=== PATIENT | female | born 1945 ===

== ENCOUNTER 2020-04-15 12:11 | Outpatient (REF) | payer MEDICARE, OTHER, SELFPAY ==
[2020-04-15 14:03] LABS: Alanine Aminotransferase 20 U/L (0-31); Alkaline Phosphatase 67 U/L (39-117); Anion Gap 17 (12-20); Aspartate Amino Transferase 17 U/L (5-31); Bilirubin Total 0.7 mg/dL (0.0-1.0); Blood Urea Nitrogen 18 mg/dL (9-16); Calcium 9.9 mg/dL (8.4-10.2); Carbon Dioxide 22 mmol/L (22-29); Chloride 105 mmol/L (96-108); Estimated Glomerular Filt Rate > 60; Glucose Random 142 mg/dL (60-115); Potassium 4.3 mmol/l (3.3-5.1); Sodium 140 mmol/L (135-145); Total Protein 7.4 g/dL (6.5-8.0)
[2020-04-15 14:15] LABS: T4 Thyroxine 6.7 ug/dL (4.5-12.0); Vitamin D 25-OH Total 27.5 ng/mL (>30)
[2020-04-15 15:44] LABS: Folate 7.8 ng/mL (> or = 4.0); Vitamin B12 676 pg/mL (200-900)
[2020-04-19 15:13] LABS: Thyrotropin Receptor Antibody <1.00 IU/L (<=2.00)
== END 2020-04-15 12:12 | disposition home or self-care (01) ==
LOC: HO.LAB 12:11
PROVIDERS: PCP Internal Medicine; Visit Provider Psychiatry & Neurology Neurology
DX: G31.84 Mild cognitive impairment of uncertain or unknown etiology (principal)
CPT/HCPCS: 36415; 80053; 82306; 82607; 82746; 83520; 84436

== ENCOUNTER 2020-04-19 14:12 | Outpatient (REF) | payer MEDICARE, MEDICAID, SELFPAY ==
--- NOTE | 2020-04-19 14:16 | CT_ITS ---
EXAMINATION: CT HEAD WITHOUT CONTRAST CLINICAL INFORMATION: Mild cognitive impairment. COMPARISON: Brain MRI dated 08/18/2018. TECHNIQUE: Contiguous axial imaging was performed from the skull base to vertex without intravenous administration of contrast. This CT examination was performed using dose optimization techniques as appropriate, variously including the following: *Automated exposure control *Adjustment of mA and/or kV according to patient size (this includes techniques or standardized protocols for targeted exams where dose is matched to indication/reason for exam; i.e. extremities or head) *Use of iterative reconstruction technique DLP: 670 mGy-cm FINDINGS: There is no evidence of acute intracranial hemorrhage or territorial infarction. No abnormal mass effect or midline shift is seen. Crowe to white matter differentiation is well preserved. No extra-axial fluid collections are identified. The ventricles are normal in size. Mild chronic white matter microangiopathic changes noted with mild generalized parenchymal volume loss. The osseous structures and soft tissues are normal. The mastoid air cells and visualized portions of the paranasal sinuses are well aerated. CT/CT head/brain wo con IMPRESSION: No acute intracranial pathology. Stable mild chronic white matter microangiopathy and mild generalized parenchymal volume loss.
== END 2020-04-19 14:13 | disposition home or self-care (01) ==
LOC: HO.CT 14:12
PROVIDERS: PCP Internal Medicine; Visit Provider Psychiatry & Neurology Neurology
DX: G31.84 Mild cognitive impairment of uncertain or unknown etiology (principal)
CPT/HCPCS: 70450

== ENCOUNTER 2020-05-13 10:04 | Outpatient (REF) | payer MEDICARE, SELFPAY ==
[2020-05-13 11:07] LABS: MANUAL DIFF FLAG NO
[2020-05-13 11:12] LABS: Basophils Percent Auto 0.4 % (0-2); Eosinophils Absolute Auto 0.1 X10*3/uL (0.0-0.4); Eosinophils Percent Auto 2.6 % (0-4); Hematocrit 38.8 % (37-47); Hemoglobin 12.5 g/dl (12.0-16.0); Imm Gran Abs Auto 0.01 X10*3/uL (0.00-0.03); Imm Gran Pct Auto 0.2 % (0.0-0.4); Lymphocytes Absolute Auto 1.4 X10*3/uL (1.2-4.9); Lymphocytes Percent Auto 25.7 % (20-40); Mean Corpuscular HGB Conc 32.2 g/dl (31.0-35.0); Mean Corpuscular Hemoglobin 29.6 pg (27.0-33.0); Mean Corpuscular Volume 91.7 fL (80-98); Mean Platelet Volume 9.9 fL (9.4-12.3); Monocytes Absolute Auto 0.5 X10*3/uL (0.1-1.2); Monocytes Percent Auto 8.7 % (2-11); Neutrophils Absolute Auto 3.3 X10*3/uL (2.0-8.3); Neutrophils Percent Auto 62.4 % (45-73); Platelet Count 262 X10*3/uL (160-400); Red Blood Count 4.23 X10*6/uL (4.20-5.50); Red Cell Distribution Width 12.6 % (11.0-16.0); White Blood Count 5.3 X10*3/uL (4.8-10.8)
[2020-05-13 11:25] LABS: Alanine Aminotransferase 21 U/L (0-31); Albumin Level 4.7 g/dL (3.5-5.0); Alkaline Phosphatase 63 U/L (39-117); Anion Gap 12 (12-20); Aspartate Amino Transferase 17 U/L (5-31); Bilirubin Total 0.5 mg/dL (0.0-1.0); Blood Urea Nitrogen 13 mg/dL (9-16); Calcium 9.6 mg/dL (8.4-10.2); Carbon Dioxide 28 mmol/L (22-29); Chloride 105 mmol/L (96-108); Cholesterol 150 mg/dL; Estimated Glomerular Filt Rate > 60; Glucose Fasting 150 mg/dL (60-99); HDL Cholesterol 48 mg/dL; LDL Cholesterol Calculated 46 mg/dl; Potassium 4.1 mmol/l (3.3-5.1); Sodium 141 mmol/L (135-145); Total Protein 7.1 g/dL (6.5-8.0); Triglycerides 280 mg/dL
[2020-05-13 11:49] LABS: Glucose Urine UA NEG (NEG); Leukocyte Esterase Urine 1+ (NEG); Nitrite Urine NEG (NEG); PH 6.5 (5.0-8.0); Specific Gravity - Urine 1.015 (1.005-1.025); Urine Blood NEG (NEG); Urine Ketones NEG (NEG); Urine Protein NEG (NEG-TRACE)
[2020-05-13 11:49] LABS: Free T4 (Free Thyroxine) 1.13 ng/dL (0.71-1.85); Thyroid Stimulating Hormone 1.73 uIU/mL (0.32-4.0)
[2020-05-13 11:59] LABS: Appearance Urine CLEAR; Color Urine YELLOW
[2020-05-13 12:04] LABS: Folate 7.3 ng/mL (> or = 4.0); Vitamin B12 619 pg/mL (200-900)
[2020-05-13 12:06] LABS: Creatinine Urine 76.91 mg/dL; Microalbum/Creatinine Ratio Ur 16.9 ug/mg cr
[2020-05-13 13:03] LABS: RBC Urine 0 /HPF (0); Squamous Epithelial Cell Urine TRACE /LPF; WBC Urine 0-2 /HPF (0-4)
== END 2020-05-13 10:05 | disposition home or self-care (01) ==
LOC: HO.LAB 10:04
PROVIDERS: PCP Internal Medicine; Visit Provider Internal Medicine
DX: E11.9 Type 2 diabetes mellitus without complications (principal); E78.2 Mixed hyperlipidemia; I10 Essential (primary) hypertension; E03.9 Hypothyroidism, unspecified; E66.3 Overweight; R41.3 Other amnesia; K21.9 Gastro-esophageal reflux disease without esophagitis
CPT/HCPCS: 36415; 80053; 80061; 81001; 82043; 82607; 82746; 84439; 84443; 85025; 87086

== ENCOUNTER 2022-04-23 12:53 | Outpatient (REF) | payer SELFPAY ==
--- NOTE | 2022-04-24 11:33 | MHC.AU.HA1 ---
Hearing Aid Evaluation Date of Visit: 04/23/22 Historical Information: Description of Hearing: Right: Mild to profound sensorineural hearing loss with 84% word discrimination. Left: Severe rising to moderately-severe and sloping to profound mixed hearing loss with no measurable word discrimination. Summary: Patient was seen at Dr. Encarnacion's office on 01/12/2022 for audiological evaluation. Based on the results, a traditional hearing aid for the left ear would not be recommended, since there is no measurable word discrimination. Patient and her daughter expressed an interest in keeping the trujillo as low as possible. They are opting out of the service plan for now. She is interested in the BTE style. She has a quiet lifestyle where most of her conversations are one-on-one. Hearing Aid Prescription: Based on the individual?s shared listening needs, communication environments, dexterity, desire for connectivity, and personal preferences, the following prescription for amplification has been made: Right ear: Make, Model, Color: Oticon Xceed 3 SP, Black Battery Size: 13 Type of Earmold/Dome/CShell/SlimTip: Microsonic Skeleton-style M2000 Clear Action Taken/Action Needed: Earmold Impressions Taken Hearing Instrument Fitting to be scheduled when materials arrive Primary Diagnosis: H90.3 Bilateral Sensorineural Hearing Loss Signature: Provider: Yamini Valentine, MARY-A
== END 2022-04-23 12:54 | disposition home or self-care (01) ==
LOC: HO.HAP 12:53
PROVIDERS: Visit Provider Otolaryngology
DX: Z46.1 Encounter for fitting and adjustment of hearing aid (principal); H90.3 Sensorineural hearing loss, bilateral
CPT/HCPCS: 92590

== ENCOUNTER 2022-05-14 12:07 | Outpatient (REF) | payer SELFPAY | END 2022-05-14 12:08 | disposition home or self-care (01) | LOC: HO.HAP 12:07 | PROVIDERS: Visit Provider Internal Medicine | DX: Z13.89 Encounter for screening for other disorder (principal) ==

== ENCOUNTER 2022-06-04 12:38 | Outpatient (REF) | payer SELFPAY ==
--- NOTE | 2022-06-04 15:23 | MHC.AU.HA2 ---
Hearing Instrument Fitting- Adult Date of Visit: 06/04/22 Hearing Instruments Dispensed: Right Ear: Make, Model, Color, Serial Number: Oticon Xceed 3 SP, Silver Reynolds Serial # [id number] [employer] Repair Warranty: 05/24/2025 [employer] Loss and Damage Warranty: 05/24/2025 [facility] Service Plan: Opted out of service plan Battery Size: 13 Earmold/Dome/CShell/SlimTip: Microsonic Skeleton-style M2000 Clear Summary of Fitting: The hearing aid returned from repair. Patient was re-instructed in care and use of the hearing aid. Patient had an easier time changing the battery by using the magnetic tool. She felt the sound was slightly echoing. Lowered overall gain by 2 steps. Patient was pleased with the adjustment. Recommendations: A hearing instrument follow-up was scheduled. Paid $1774 Diagnosis Code(s): Primary Diagnosis: H90.3 Bilateral Sensorineural Hearing Loss Signature: Provider: Yamini Valentine, CCC-A
== END 2022-06-04 12:39 | disposition home or self-care (01) ==
LOC: HO.HAP 12:38
PROVIDERS: Visit Provider Internal Medicine
DX: Z46.1 Encounter for fitting and adjustment of hearing aid (principal); H90.3 Sensorineural hearing loss, bilateral
CPT/HCPCS: V5257; V5264

== ENCOUNTER 2022-07-20 11:45 | Outpatient (REF) | payer MEDICARE, MEDICAID, SELFPAY ==
[2022-07-20 12:06] LABS: MANUAL DIFF FLAG NO
[2022-07-20 12:09] LABS: Basophils Percent Auto 0.8 % (0-2); Eosinophils Absolute Auto 0.2 X10*3/uL (0.0-0.4); Eosinophils Percent Auto 4.2 % (0-4); Hematocrit 36.5 % (37.0-47.0); Hemoglobin 12.1 g/dl (12.0-16.0); Imm Gran Abs Auto 0.01 X10*3/uL (0.00-0.03); Imm Gran Pct Auto 0.2 % (0.0-0.4); Lymphocytes Absolute Auto 1.5 X10*3/uL (1.2-4.9); Lymphocytes Percent Auto 29.7 % (20-40); Mean Corpuscular HGB Conc 33.2 g/dl (31.0-35.0); Mean Corpuscular Hemoglobin 30.3 pg (27.0-33.0); Mean Corpuscular Volume 91.5 fL (80.0-98.0); Mean Platelet Volume 9.4 fL (9.4-12.3); Monocytes Absolute Auto 0.4 X10*3/uL (0.1-1.2); Monocytes Percent Auto 8.3 % (2-11); Neutrophils Absolute Auto 2.8 x10*3/uL (2.0-8.3); Neutrophils Percent Auto 56.8 % (45-73); Platelet Count 263 X10*3/uL (160-400); Red Blood Count 3.99 X10*6/uL (4.20-5.50); Red Cell Distribution Width 12.8 % (11.0-16.0)
[2022-07-20 13:33] LABS: Alanine Aminotransferase 9 U/L (0-31); Albumin Level 4.5 g/dL (3.5-5.0); Alkaline Phosphatase 60 U/L (39-117); Anion Gap 13 (12-20); Aspartate Amino Transferase 14 U/L (5-31); Bilirubin Total 0.5 mg/dL (0.0-1.0); Blood Urea Nitrogen 13 mg/dL (9-16); Calcium 9.2 mg/dL (8.4-10.2); Carbon Dioxide 25 mmol/L (22-29); Chloride 108 mmol/L (96-108); Cholesterol 174 mg/dL; Estimated Glomerular Filt Rate > 60; Glucose Fasting 126 mg/dL (60-99); HDL Cholesterol 44 mg/dL; LDL Cholesterol Calculated 85 mg/dl; Potassium 4.6 mmol/L (3.3-5.1); Sodium 141 mmol/L (135-145); Total Protein 6.7 g/dL (6.5-8.0); Triglycerides 227 mg/dL
[2022-07-20 14:07] LABS: Appearance Urine Clear; Color Urine Yellow; Glucose Urine UA Negative (Negative); Leukocyte Esterase Urine Small (1+) (Negative); Nitrite Urine Negative (Negative); UMIC TRIGGER UACC YES; Urine Blood Negative (Negative); Urine Ketones Negative (Negative); Urine Protein Negative (Neg-Trace)
[2022-07-20 14:20] LABS: Bacteria Urine None Seen (None Seen); Hyaline Casts Urine 0-2 /LPF (0-2); RBC Urine 0-2 /HPF (0-2); UACC Culture Trigger YES; WBC Urine 0-5 /HPF (0-5)
[2022-07-20 14:31] LABS: Estimated Average Glucose 134 mg/dL; Hemoglobin A1c % 6.3 %
[2022-07-20 14:40] LABS: Folate 4.5 ng/mL (> or = 4.0); Free T4 (Free Thyroxine) 1.21 ng/dL (0.71-1.85); Vitamin B12 516 pg/mL (200-900); Vitamin D 25-OH Total 22.2 ng/mL (>30)
== END 2022-07-20 11:46 | disposition home or self-care (01) ==
LOC: HO.LAB 11:45
PROVIDERS: PCP Internal Medicine; Visit Provider Internal Medicine
DX: E78.00 Pure hypercholesterolemia, unspecified (principal); E03.9 Hypothyroidism, unspecified; I10 Essential (primary) hypertension; R41.89 Other symptoms and signs involving cognitive functions and awareness; R73.01 Impaired fasting glucose; E55.9 Vitamin D deficiency, unspecified; R82.90 Unspecified abnormal findings in urine
CPT/HCPCS: 36415; 80053; 80061; 81001; 81003; 82306; 82607; 82746; 83036; 84439; 84443; 85025; 87086

== ENCOUNTER 2023-02-01 14:20 | Outpatient (AMB) | payer MEDICARE, SELFPAY ==
[2023-02-01 14:22] VITALS: BP 118/82; PULSE 85; O2SAT 98; BMI 21.2
--- NOTE | 2023-02-01 14:22 | A.OFFPC_ITS ---
Vital Signs 02/01/23 14:22 Height 5 ft 1 in Weight 112 lb 2 oz BMI 21.2 BP 118/82 Blood Pressure Location Lt brachial Position Sitting Pulse 85 Pulse Source Pulse Oximeter Pulse Oximetry (%) 98 Oxygen Delivery Method Room Air Intake Visit Reasons: DM, hyperlipidemia, hypothyroidism Cheese Weigher Required: No Accompanied by: Self / Same As Patient Allergies tramadol Allergy (Severe, Verified 02/01/23 15:02) Hives lisinopril Adverse Reaction (Unknown, Verified 02/01/23 15:02) cough Medication List - Last Reconciled 02/01/23 by Damián Yuan MD albuterol sulfate 90 mcg/actuation 2 puffs inhalation Q6H PRN amlodipine 5 mg PO DAILY 90 days atorvastatin 20 mg PO DAILY cholecalciferol (vitamin D3) 50 mcg PO DAILY 90 days donepezil 10 mg PO DAILY 90 days fenofibrate 54 mg PO DAILY ibuprofen 600 mg PO TID PRN levothyroxine 50 mcg PO QAM memantine 10 mg PO QPM 30 days omeprazole 20 mg PO DAILY Tobacco use date assessed: 02/01/23 Fall risk assessment: 2 + Falls in past year Last assessed Fall Risk: 02/01/23 Dental Screening Dental Screen Date: 02/01/23 Did you have a dental visit in the last 12 months?: No Did you have a dental problem in the last 6 months where you did not have access to dental care?: No Was dental information given to patient?: No HPI DM, hyperlipidemia, hypothyroidism HPI Details Patient comes in today for her follow up visit Daughter states patient has not been eating much for a few weeks now - patient reportedly often states that she is not hungry States that patient then complains that she is weak all the time and often feels cold She has lost about 10 pounds since her last visit She denies any headaches or dizziness Denies any chest pains, no SOB No nausea/vomiting, no abdominal pain No change in bowel habits noted Was not able to get her follow up labs done prior to her appt today - daughter states that she will try to bring her mother to the lab by this weekend to get them done FORMERLY [facility], [facility] Medical History Blurred vision, bilateral Vitamin D deficiency Overweight (BMI 25.0-29.9) Memory impairment Osteoarthritis Bilateral hearing loss Asthma GERD without esophagitis Acquired hypothyroidism Benign essential hypertension Mixed hyperlipidemia Type 2 diabetes mellitus without complication, without long-term current use of insulin Surgical History History of cataract surgery History of D&C History of tubal ligation Family History Father Lung cancer Mother Hypertension Daughter Mental health disorder Social History Housing: Apartment Alcohol intake: never Patient Tobacco Use Status: Never used Tobacco e-Cigarette/Vaping Use: Never Used Second Hand Smoke Exposure: No service: No Current occupational status: retired Cognitive needs: No Hearing needs: Yes (has upcoming appt for audiology) Vision needs: Yes Questionnaire PHQ-9 Over the last 2 weeks, how often have you been bothered by any of the following problems? 1. Little interest or pleasure in doing things: not at all 2. Feeling down, depressed, or hopeless: not at all 3. Trouble falling or staying asleep, or sleeping too much: not at all 4. Feeling tired or having little energy: not at all 5. Poor appetite or overeating: not at all 6. Feeling bad about yourself - or that you are a failure or have let yourself or your family down: not at all 7. Trouble concentrating on things, such as reading the newspaper or watching television: not at all 8. Moving or speaking so slowly that other people could have noticed. Or the opposite - being so fidgety or restless that you have been moving around a lot more than usual: not at all 9. Thoughts that you would be better off or of hurting yourself in some way: not at all Total score: 0 Depression Screening Interpretation: Negative 79924 - PHQ-9 Billing: Yes Source: Developed by Drs. Joni James, Kristine Campa, Alex Okeefe and colleagues, with an educational suresh from [employer]. Thrive Questionnaire Date Thrive assessed: 02/01/23 I am a: Patient What is your living situation today?: I have a steady place to live Within the past 12 months, did the food you bought not last and you didn't have the money to get more?: Never true Within the past 12 months, did you worry whether your food would run out before you got money to buy more?: Never true Do you have trouble paying for medicines?: No Do you have trouble getting transportation to medical appointments?: No Do you have trouble paying your heating and electricity bill?: No Do you have trouble taking care of your child, family member or friend?: No Do you have trouble with day-to-day activities such as bathing, preparing meals, shopping, managing finances, etc.?: No Are you currently unemployed and looking for a job?: No Are you interested in more education?: No Please select the resources that you would like help with: None Currently or been in a relationship where the following occur: no concerns reported AUDIT C Alcohol Use Questionnaire (AUDIT-C) 1. How often do you have a drink containing alcohol?: Never 3. How often do you have six or more drinks on one occasion?: Never Total Score: 0 Score Reviewed/Action Taken: Yes MONICA-7 AMB Questionnaire MONICA-7 Date MONICA - 7 assessed: 02/01/23 Feeling nervous, anxious, or on edge: 0 = Not at all Not being able to stop or control worryin = Not at all Worrying too much about different things: 0 = Not at all Trouble relaxin = Not at all Being so restless that it is hard to sit still: 0 = Not at all Becoming easily annoyed or irritable: 0 = Not at all Feeling afraid as if something awful might happen: 0 = Not at all Total MONICA-7 score (0-4 normal; 5-9 mild; 10-14 moderate; 15-21 severe): 0 Source: Developed by Drs. Joni James, Kristine Campa, Alex Okeefe and colleagues, with an educational suresh from [employer]. MONICA-7 Assessment Billing MONICA-7 Assessment Tool: MONICA-7 Assessment 92342 Review of Systems Const Denies chills, Denies difficulty sleeping (sleeps on her own schedule), Denies fatigue, Denies fever(s), Denies headache(s), Reports poor appetite, Reports weakness and Reports weight loss ENT Denies dysphagia, Denies dizziness, Denies otalgia, Denies headache(s), Reports hearing loss (bilaterally; worse in the left ear - now has hearing aid in right ear), Denies odynophagia and Denies sore throat Card Denies chest pain, Denies palpitations and Denies dyspnea Resp Denies cough, Denies dyspnea and Denies wheezing GI Denies abdominal pain, Denies constipation, Denies dysphagia, Denies heartburn, Denies diarrhea, Denies nausea, Denies odynophagia and Denies vomiting Denies difficulty voiding, Denies nocturia and Denies dysuria Musc Denies arthralgias and Denies muscle weakness Skin/Breast Details: (+) long and disfigured toenails on her big toes bilaterally Denies rash Neuro Denies dizziness, Denies headache(s), Reports memory loss and Reports weakness Psych Reports memory loss Endo Denies fatigue and Denies palpitations Aller/Immun Denies wheezing Physical exam (Primary Care) Vital Signs: Last Vital Signs Pulse 85 02/01/23 14:22 BP 118/82 02/01/23 14:22 Pulse Ox 98 02/01/23 14:22 Oxygen Delivery Method Room Air 02/01/23 14:22 BMI result Body Mass Index 21.2 Tobacco/Smoking Status: Tobacco use Status Tobacco use date assessed 02/01/23 02/01/23 14:30 Patient Tobacco Use Status Never used Tobacco 02/01/23 14:30 e-Cigarette/Vaping Use Never Used 02/01/23 14:30 PHQ-9: PHQ-9 Score PHQ-9: Total score 0 02/01/23 15:06 Depression Screening Interpretation: Negative Thrive Assessment: Date of Thrive Assessment Date Thrive assessed 02/01/23 02/01/23 14:30 Currently or been in a relationship where the following occur: no concerns reported Const General: no acute distress and alert HENMT Ears: TM's normal bilaterally and EAC's normal Throat: Yes posterior oropharynx normal and Yes tonsils normal (no TP conges tion) Neck Neck: Yes no lymphadenopathy and Yes supple Resp Auscultation: clear to auscultation bilaterally, no rales and no wheezes Cardio Rate: regular rate Rhythm: regular rhythm Heart sounds: no murmurs GI Palpation (GI): Soft to palpation and nontender Auscultation: normal bowel sounds Skin General skin exam: no rashes or lesions noted Rashes: no rashes Extrem General: Yes no clubbing, cyanosis or edema Results AMB Hemoglobin A1c AMB Hemoglobin A1c 5.8 % Last Edit by Keith Gomez on 02/01/23 14:49 Results Reviewed Results Reviewed: Laboratory Last Values Hgb A1c (Clinic) 5.8 % (4.0-6.0) 02/01/23 14:48 Assessment and Plan Assessment & Plan (1) Type 2 diabetes mellitus without complication, without long-term current use of insulin: Code(s): E11.9 - Type 2 diabetes mellitus without complications Plan: In-office HgbA1c done today is at 5.8% (HgbA1c was at 6.3% a few months ago) - goal is at least <7.0% Reinforced diabetic diet Patient has so far not been started on or required any Rx for her diabetes yet and she has just been keeping it under control with diet modification/restriction alone (2) Mixed hyperlipidemia: Code(s): E78.2 - Mixed hyperlipidemia Plan: Did not get her follow up labs done yet - her daughter states that she will help her get them done by this weekend Reinforced low cholesterol diet Continue Atorvastatin 20 mg QD and Fenofibrate 54 mg QD Will recheck her labs and fasting lipids again in 3 months for follow-up (3) Benign essential hypertension: Code(s): I10 - Essential (primary) hypertension Plan: Reinforced low sodium diet - goal is systolic BP of at least 130 to 140 mm or less Continue Amlodipine 5 mg QD - Rx refilled (4) Asthma: Code(s): J45.909 - Unspecified asthma, uncomplicated Qualifiers: Asthma complication type: uncomplicated Asthma persistence: intermittent Asthma severity: mild Qualified Code(s): J45.20 - Mild intermittent asthma, uncomplicated Plan: Stable Continue Spiriva Respimat 2.5 mg 2 inhalations QD and Albuterol HFA 2 inhalations Q 6 hours PRN (5) Acquired hypothyroidism: Code(s): E03.9 - Hypothyroidism, unspecified Plan: Continue Levothyroxine 50 mcg QD Will recheck her TFTs in 3 months for follow up (6) GERD without esophagitis: Code(s): K21.9 - Gastro-esophageal reflux disease without esophagitis Plan: Dietary restrictions reinforced Continue Omeprazole 20 mg QD (7) Osteoarthritis: Code(s): M19.90 - Unspecified osteoarthritis, unspecified site Qualifiers: Osteoarthritis location: unspecified site Osteoarthritis type: primary Qualified Code(s): M19.91 - Primary osteoarthritis, unspecified site Plan: Continue Tramadol 50 mg Q 6 hours PRN for increased pain (8) Vitamin D deficiency: Code(s): E55.9 - Vitamin D deficiency, unspecified Plan: Continue Vitamin D3 2000 units QD Will recheck Vitamin D level in 3 months for follow up (9) Memory impairment: Code(s): R41.3 - Other amnesia Plan: Is most likely due to cognitive impairment associated with aging Follow up with neurology as scheduled (10) Bilateral hearing loss: Code(s): H91.93 - Unspecified hearing loss, bilateral Qualifiers: Hearing loss type: unspecified Qualified Code(s): H91.93 - Unspecified hearing loss, bilateral Plan: Hearing evaluation done a few months ago revealed bilateral hearing loss, worse in the left ear Currently has hearing aid only in the right ear; was advised that a hearing aid for the left ear would not be recommended, since there is no measurable word discrimination in the ear and also since they are interested in keeping costs down Follow up with ENT as scheduled for continuing management (sees Dr. Encarnacion) (11) Onycholysis of toenail: Comment: involving the big toes bilaterally Code(s): L60.1 - Onycholysis Plan: Patient was previously referred to podiatry for further evaluation and management but her daughter states that they have not yet been contacted for an appointment Will refer her again to podiatry (12) Weight loss: Code(s): R63.4 - Abnormal weight loss Plan: Patient is cautioned again that she has been gradually and consistently losing weight for the past several months; she has lost another 10 pounds since her last visit Have advised her that if she does not eat her meals regularly and routinely, her eating habits will slowly decline and this is most likely what is happening in her case Have discussed with patient and her daughter that patient is gradually declining cognition and her irregular sleeping habits are also likely playing a big role in her regular eating habits and weight loss Have advised patient to try small frequent feedings if she finds that she really can not eat much during her meal times and have advised her to try to weigh herself at least once a week and this should help her keep track of her weight Will go ahead and start her on some Cyproheptadine 4 mg BID to help stimulate her appetite somewhat Will have her recheck some labs in 3 months for follow-up/further evaluation Plan Follow up in 3 months Orders: Orders Lipid Panel 3 Months E78.00 - Pure hypercholesterolemia, unspecified Complete Blood Count Auto Diff 3 Months I10 - Essential (primary) hypertension Comprehensive [place]. Panel Fast 3 Months E78.00 - Pure hypercholesterolemia, unspecified AMB Hemoglobin A1c Today Z13.9 - Encounter for screening, unspecified Free T4 (Free Thyroxine) 3 Months E03.9 - Hypothyroidism, unspecified Vitamin D 25-OH Total 3 Months E55.9 - Vitamin D deficiency, unspecified UA CC w/rflx Micro + Cult 3 Months R30.0 - Dysuria Vitamin B12 and Folate 3 Months E53.8 - Deficiency of other specified B group vitamins Thyroid Stimulating Hormone 3 Months E03.9 - Hypothyroidism, unspecified Referrals Podiatry Referral B35.1 - Tinea unguium Medications: New cyproheptadine 4 mg PO BID 120 tabs 2RF 60 days Coding Level of Care Code Est Pt Level 4 (18248) Diagnoses Type 2 diabetes mellitus without complication, without long-term current use of insulin E11.9 Mixed hyperlipidemia E78.2 Benign essential hypertension I10 Mild intermittent asthma without complication J45.20 Asthma complication type: uncomplicated Asthma persistence: intermittent Asthma severity: mild Acquired hypothyroidism E03.9 GERD without esophagitis K21.9 Primary osteoarthritis, unspecified site M19.91 Osteoarthritis location: unspecified site Osteoarthritis type: primary Vitamin D deficiency E55.9 Memory impairment R41.3 Bilateral hearing loss, unspecified hearing loss type H91.93 Hearing loss type: unspecified Onycholysis of toenail L60.1 Weight loss R63.4 Additional Codes MONICA-7 Assessment Billing - MONICA-7 Assessment Tool: MONICA-7 Assessment [id number] ([id number])
== END 2023-02-01 15:14 | disposition home or self-care (01) ==
PROVIDERS: PCP Internal Medicine; Visit Provider Internal Medicine
DX: E11.9 Type 2 diabetes mellitus without complications (principal)
CPT/HCPCS: 83036; 99214

== ENCOUNTER 2023-02-08 11:15 | Outpatient (REF) | payer MEDICARE, MEDICAID, SELFPAY ==
[2023-02-08 11:43] LABS: MANUAL DIFF FLAG NO
[2023-02-08 12:03] LABS: Basophils Percent Auto 0.5 % (0-2); Eosinophils Absolute Auto 0.1 X10*3/uL (0.0-0.4); Eosinophils Percent Auto 2.5 % (0-4); Hematocrit 37.6 % (37.0-47.0); Imm Gran Abs Auto 0.01 X10*3/uL (0.00-0.03); Imm Gran Pct Auto 0.3 % (0.0-0.4); Lymphocytes Absolute Auto 1.3 X10*3/uL (1.2-4.9); Lymphocytes Percent Auto 34.2 % (20-40); Mean Corpuscular HGB Conc 31.9 g/dl (31.0-35.0); Mean Corpuscular Hemoglobin 29.7 pg (27.0-33.0); Mean Corpuscular Volume 93.1 fL (80.0-98.0); Mean Platelet Volume 9.6 fL (9.4-12.3); Monocytes Absolute Auto 0.4 X10*3/uL (0.1-1.2); Monocytes Percent Auto 10.9 % (2-11); Neutrophils Absolute Auto 1.9 x10*3/uL (2.0-8.3); Neutrophils Percent Auto 51.6 % (45-73); Platelet Count 242 X10*3/uL (160-400); Red Blood Count 4.04 X10*6/uL (4.20-5.50); Red Cell Distribution Width 14.7 % (11.0-16.0); White Blood Count 3.7 X10*3/uL (4.8-10.8)
[2023-02-08 12:20] LABS: Estimated Average Glucose 114 mg/dL; Hemoglobin A1c % 5.6 % (<6.0)
[2023-02-08 13:17] LABS: Alanine Aminotransferase 16 U/L (0-31); Albumin Level 4.2 g/dL (3.5-5.0); Alkaline Phosphatase 47 U/L (39-117); Anion Gap 15 (12-20); Aspartate Amino Transferase 16 U/L (5-31); Bilirubin Total 0.5 mg/dL (0.0-1.0); Blood Urea Nitrogen 9 mg/dL (9-16); Calcium 9.3 mg/dL (8.4-10.2); Carbon Dioxide 22 mmol/L (22-29); Chloride 110 mmol/L (96-108); Cholesterol 153 mg/dL (<200); Estimated Glomerular Filt Rate > 60; Glucose Fasting 98 mg/dL (60-99); HDL Cholesterol 42 mg/dL (>40); LDL Cholesterol Calculated 51 mg/dL (<100); Potassium 3.9 mmol/L (3.3-5.1); Sodium 143 mmol/L (135-145); Total Protein 6.6 g/dL (6.5-8.0); Triglycerides 304 mg/dL (<150)
[2023-02-08 13:36] LABS: Free T4 (Free Thyroxine) 0.98 ng/dL (0.71-1.85); Vitamin D 25-OH Total 44.6 ng/mL (>30)
[2023-02-08 14:06] LABS: Appearance Urine Clear; Color Urine Yellow; Glucose Urine UA Negative (Negative); Leukocyte Esterase Urine Large (3+) (Negative); Nitrite Urine Negative (Negative); PH 6.5 (5.0-9.0); Specific Gravity - Urine 1.015 (1.005-1.025); UMIC TRIGGER UACC YES; Urine Blood Negative (Negative); Urine Ketones Negative (Negative); Urine Protein Negative (Neg-Trace)
[2023-02-08 14:10] LABS: Bacteria Urine None Seen (None Seen); RBC Urine 0-2 /HPF (0-2); Squamous Epithelial Cell Urine 0-2 /HPF (0-2); UACC Culture Trigger YES; WBC Urine 21-50 /HPF (0-5)
[2023-02-08 14:13] LABS: Creatinine Urine 69.86 mg/dL; Microalbum/Creatinine Ratio Ur 15.7 ug/mg cr (<30)
[2023-02-08 14:32] LABS: Folate 3.8 ng/mL (> or = 4.0); Vitamin B12 834 pg/mL (200-900)
== END 2023-02-08 11:16 | disposition home or self-care (01) ==
LOC: HO.LAB 11:15
PROVIDERS: PCP Internal Medicine; Visit Provider Internal Medicine
DX: I10 Essential (primary) hypertension (principal); E11.9 Type 2 diabetes mellitus without complications; E55.9 Vitamin D deficiency, unspecified; E53.8 Deficiency of other specified B group vitamins; E03.9 Hypothyroidism, unspecified; E78.00 Pure hypercholesterolemia, unspecified; R30.0 Dysuria
CPT/HCPCS: 36415; 80053; 80061; 81001; 81003; 82043; 82306; 82570; 82607; 82746; 83036; 84439; 84443; 85025; 87086

== ENCOUNTER 2023-06-23 10:47 | Outpatient (REF) | payer MEDICARE, MEDICAID, SELFPAY ==
[2023-06-23 11:03] LABS: MANUAL DIFF FLAG NO
[2023-06-23 11:29] LABS: Basophils Percent Auto 0.5 % (0-2); Eosinophils Absolute Auto 0.2 X10*3/uL (0.0-0.4); Eosinophils Percent Auto 3.5 % (0-4); Hematocrit 35.9 % (37.0-47.0); Hemoglobin 11.8 g/dl (12.0-16.0); Imm Gran Abs Auto 0.01 X10*3/uL (0.00-0.03); Imm Gran Pct Auto 0.2 % (0.0-0.4); Lymphocytes Absolute Auto 1.4 X10*3/uL (1.2-4.9); Lymphocytes Percent Auto 32.6 % (20-40); Mean Corpuscular HGB Conc 32.9 g/dl (31.0-35.0); Mean Corpuscular Hemoglobin 29.9 pg (27.0-33.0); Mean Corpuscular Volume 90.9 fL (80.0-98.0); Mean Platelet Volume 9.1 fL (9.4-12.3); Monocytes Absolute Auto 0.5 X10*3/uL (0.1-1.2); Monocytes Percent Auto 11.4 % (2-11); Neutrophils Absolute Auto 2.2 x10*3/uL (2.0-8.3); Neutrophils Percent Auto 51.8 % (45-73); Platelet Count 256 X10*3/uL (160-400); Red Blood Count 3.95 X10*6/uL (4.20-5.50); Red Cell Distribution Width 12.5 % (11.0-16.0); White Blood Count 4.3 X10*3/uL (4.8-10.8)
[2023-06-23 11:31] LABS: Appearance Urine Clear; Color Urine Yellow; Glucose Urine UA Negative (Negative); Leukocyte Esterase Urine Moderate (2+) (Negative); Nitrite Urine Negative (Negative); UMIC TRIGGER UACC YES; Urine Blood Negative (Negative); Urine Ketones Negative (Negative); Urine Protein Negative (Neg-Trace)
[2023-06-23 12:02] LABS: Bacteria Urine None Seen (None Seen); Hyaline Casts Urine 0-2 /LPF (0-2); RBC Urine 0-2 /HPF (0-2); UACC Culture Trigger YES; WBC Urine 21-50 /HPF (0-5)
[2023-06-23 13:03] LABS: Alanine Aminotransferase 6 U/L (0-31); Albumin Level 4.2 g/dL (3.5-5.0); Alkaline Phosphatase 49 U/L (39-117); Anion Gap 13 (12-20); Aspartate Amino Transferase 11 U/L (5-31); Bilirubin Total 0.3 mg/dL (0.0-1.0); Blood Urea Nitrogen 16 mg/dL (9-16); Calcium 9.4 mg/dL (8.4-10.2); Carbon Dioxide 23 mmol/L (22-29); Chloride 109 mmol/L (96-108); Cholesterol 156 mg/dL (<200); Estimated Glomerular Filt Rate > 60; Glucose Fasting 172 mg/dL (60-99); HDL Cholesterol 54 mg/dL (>40); LDL Cholesterol Calculated 59 mg/dL (<100); Potassium 3.8 mmol/L (3.3-5.1); Sodium 141 mmol/L (135-145); Total Protein 6.8 g/dL (6.5-8.0); Triglycerides 218 mg/dL (<150)
[2023-06-23 13:09] LABS: Folate 3.7 ng/mL (> or = 4.0); Vitamin B12 370 pg/mL (200-900)
[2023-06-23 13:12] LABS: Thyroid Stimulating Hormone 1.64 uIU/mL (0.32-4.0)
[2023-06-23 14:14] LABS: Vitamin D 25-OH Total 28.9 ng/mL (>30)
== END 2023-06-23 10:48 | disposition home or self-care (01) ==
LOC: HO.LAB 10:47
PROVIDERS: PCP Internal Medicine; Visit Provider Internal Medicine
DX: E03.9 Hypothyroidism, unspecified (principal); E78.00 Pure hypercholesterolemia, unspecified; I10 Essential (primary) hypertension; E55.9 Vitamin D deficiency, unspecified; E53.8 Deficiency of other specified B group vitamins; R30.0 Dysuria
CPT/HCPCS: 36415; 80053; 80061; 81001; 82306; 82607; 82746; 84439; 84443; 85025; 87086; 87147

== ENCOUNTER 2023-06-25 15:11 | Outpatient (AMB) | payer MEDICARE, SELFPAY ==
[2023-06-25 15:22] VITALS: BP 116/78; PULSE 93; O2SAT 99; BMI 25.2
--- NOTE | 2023-06-25 15:22 | MHC.PC.OV ---
Vital Signs 06/25/23 15:22 Height 5 ft 1 in Weight 133 lb 9.602 oz BMI 25.2 BP 116/78 Blood Pressure Location Lt brachial Position Sitting Pulse 93 Pulse Source Pulse Oximeter Pulse Oximetry (%) 99 Oxygen Delivery Method Room Air Intake Visit Reasons: 3 month follow up [employer] Required: No Accompanied by: Self / Same As Patient Allergies tramadol Allergy (Severe, Verified 06/25/23 16:11) Hives lisinopril Adverse Reaction (Unknown, Verified 06/25/23 16:11) cough Medication List - Last Reconciled 06/25/23 by Damián Yuan MD albuterol sulfate 90 mcg/actuation 2 puffs inhalation Q6H PRN amlodipine 5 mg PO DAILY 90 days atorvastatin 20 mg PO DAILY cholecalciferol (vitamin D3) 50 mcg PO DAILY 90 days cyproheptadine 4 mg PO BID 60 days donepezil 10 mg PO DAILY 90 days fenofibrate 54 mg PO DAILY food supplemt, lactose-reduced (Ensure oral liquid) 1 ea PO TIDWMEAL 30 days ibuprofen 600 mg PO TID PRN levothyroxine 50 mcg PO QAM memantine 10 mg PO QPM 30 days omeprazole 20 mg PO DAILY Tobacco use date assessed: 06/25/23 Fall risk assessment: No Falls in past year Last assessed Fall Risk: 06/25/23 Dental Screening Dental Screen Date: 06/25/23 Did you have a dental visit in the last 12 months?: No Did you have a dental problem in the last 6 months where you did not have access to dental care?: No Was dental information given to patient?: No HPI 3 month follow up HPI Details Patient comes in today for her follow up visit States that she feels okay She denies any headaches or dizziness Denies any chest pains, no SOB No nausea/vomiting, no abdominal pain No change in bowel habits noted Had her follow up labs done a couple of days ago - to discuss her results [facility] Medical History Blurred vision, bilateral Vitamin D deficiency Overweight (BMI 25.0-29.9) Memory impairment Osteoarthritis Bilateral hearing loss Asthma GERD without esophagitis Acquired hypothyroidism Benign essential hypertension Mixed hyperlipidemia Type 2 diabetes mellitus without complication, without long-term current use of insulin Surgical History History of cataract surgery History of D&C History of tubal ligation Family History Father Lung cancer Mother Hypertension Daughter Mental health disorder Social History Housing: Apartment Alcohol intake: never Patient Tobacco Use Status: Never used Tobacco e-Cigarette/Vaping Use: Never Used Second Hand Smoke Exposure: No service: No Current occupational status: retired Cognitive needs: No Hearing needs: Yes (has upcoming appt for audiology) Vision needs: Yes Questionnaire PHQ-9 Over the last 2 weeks, how often have you been bothered by any of the following problems? 1. Little interest or pleasure in doing things: not at all 2. Feeling down, depressed, or hopeless: not at all 3. Trouble falling or staying asleep, or sleeping too much: not at all 4. Feeling tired or having little energy: not at all 5. Poor appetite or overeating: not at all 6. Feeling bad about yourself - or that you are a failure or have let yourself or your family down: not at all 7. Trouble concentrating on things, such as reading the newspaper or watching television: not at all 8. Moving or speaking so slowly that other people could have noticed. Or the opposite - being so fidgety or restless that you have been moving around a lot more than usual: not at all 9. Thoughts that you would be better off or of hurting yourself in some way: not at all Total score: 0 Depression Screening Interpretation: Negative Depression Screening Done: Yes 97861 - PHQ-9 Billing: Yes Source: Developed by Drs. Joni James, Kristine Campa, Alex Okeefe and colleagues, with an educational suresh from [employer]. Thrive Questionnaire Date Thrive assessed: 06/25/23 I am a: Patient What is your living situation today?: I have a steady place to live Within the past 12 months, did the food you bought not last and you didn't have the money to get more?: Never true Within the past 12 months, did you worry whether your food would run out before you got money to buy more?: Never true Do you have trouble paying for medicines?: No Do you have trouble getting transportation to medical appointments?: No Do you have trouble paying your heating and electricity bill?: No Do you have trouble taking care of your child, family member or friend?: No Do you have trouble with day-to-day activities such as bathing, preparing meals, shopping, managing finances, etc.?: No Are you currently unemployed and looking for a job?: No Are you interested in more education?: No Please select the resources that you would like help with: None Currently or been in a relationship where the following occur: no concerns reported THRIVE Score: 0 AUDIT C Alcohol Use Questionnaire (AUDIT-C) 1. How often do you have a drink containing alcohol?: Never 3. How often do you have six or more drinks on one occasion?: Never Total Score: 0 Score Reviewed/Action Taken: Yes MONICA-7 AMB Questionnaire MONICA-7 Date MONICA - 7 assessed: 06/25/23 Feeling nervous, anxious, or on edge: 0 = Not at all Not being able to stop or control worryin = Not at all Worrying too much about different things: 0 = Not at all Trouble relaxin = Not at all Being so restless that it is hard to sit still: 0 = Not at all Becoming easily annoyed or irritable: 0 = Not at all Feeling afraid as if something awful might happen: 0 = Not at all Total MONICA-7 score (0-4 normal; 5-9 mild; 10-14 moderate; 15-21 severe): 0 Source: Developed by Drs. Joni James, Kristine Campa, Alex Okeefe and colleagues, with an educational suresh from [employer]. MONICA-7 Assessment Billing MONICA-7 Assessment Tool: MONICA-7 Assessment 64666 Review of Systems Const Denies difficulty sleeping (sleeps on her own schedule), Denies fatigue, Denies fever(s) and Denies headache(s) ENT Denies dysphagia, Denies dizziness, Denies otalgia, Denies headache(s), Reports hearing loss (bilaterally; worse in the left ear - now has hearing aid in right ear), Denies odynophagia and Denies sore throat Card Denies chest pain, Denies palpitations and Denies dyspnea Resp Denies chest congestion, Denies cough, Denies dyspnea and Denies wheezing GI Denies abdominal pain, Denies constipation, Denies dysphagia, Denies heartburn, Denies diarrhea, Denies nausea, Denies odynophagia and Denies vomiting Denies difficulty voiding, Denies nocturia, Denies dysuria and Denies urinary urgency Musc Denies back pain, Denies arthralgias and Denies muscle weakness Skin/Breast Details: (+) long and disfigured toenails on her big toes bilaterally Denies rash Neuro Denies dizziness, Denies headache(s) and Reports memory loss (per daughter) Psych Reports memory loss (per daughter) Endo Denies fatigue and Denies palpitations Aller/Immun Denies wheezing Physical exam (Primary Care) Vital Signs: Last Vital Signs Pulse 93 06/25/23 15:22 BP 116/78 06/25/23 15:22 Pulse Ox 99 06/25/23 15:22 Oxygen Delivery Method Room Air 06/25/23 15:22 BMI result Body Mass Index 25.2 Tobacco/Smoking Status: Tobacco use Status Tobacco use date assessed 06/25/23 06/25/23 15:28 Patient Tobacco Use Status Never used Tobacco 06/25/23 15:28 e-Cigarette/Vaping Use Never Used 06/25/23 15:28 PHQ-9: PHQ-9 Score PHQ-9: Total score 0 06/25/23 16:14 Depression Screening Interpretation: Negative Thrive Assessment: Date of Thrive Assessment Date Thrive assessed 06/25/23 06/25/23 15:28 Currently or been in a relationship where the following occur: no concerns reported Const General: no acute distress and alert HENMT Ears: TM's normal bilaterally and EAC's normal Throat: Yes posterior oropharynx normal and Yes tonsils normal (no TP congestion) Neck Neck: Yes no lymphadenopathy and Yes supple Resp Auscultation: clear to auscultation bilaterally, no rales and no wheezes Cardio Rate: regular rate Rhythm: regular rhythm Heart sounds: no murmurs GI Palpation (GI): Soft to palpation and nontender Auscultation: normal bowel sounds Skin Rashes: no rashes Extrem General: Yes no clubbing, cyanosis or edema Results AMB Hemoglobin A1c AMB Hemoglobin A1c 6.4 % Last Edit by NADIR Motta on 06/25/23 16:15 Results Reviewed Results Reviewed: Laboratory Last Values Hgb A1c (Clinic) 6.4 % (4.0-6.0) H 06/25/23 16:11 Laboratory Tests 06/23/23 06/23/23 06/23/23 10:54 11:02 11:02 WBC 4.3 L Hgb 11.8 L Hct 35.9 L Plt Count 256 Sodium 141 Potassium 3.8 Creatinine 0.80 Estimated GFR > 60 Fasting Glucose 172 H Calcium 9.4 AST 11 ALT 6 Triglycerides 218 H Cholesterol 156 LDL Cholesterol, Calc 59 HDL Cholesterol 54 Vitamin B12 370 25-OH Vitamin D Total 28.9 L TSH 1.64 Free T4 1.00 Urine pH 6.0 Ur Specific [place] 1.020 Urine Protein Negative Urine Glucose (UA) Negative Urine Blood Negative Assessment and Plan Assessment & Plan (1) Type 2 diabetes mellitus without complication, without long-term current use of insulin: Code(s): E11.9 - Type 2 diabetes mellitus without complications Plan: In-office HgbA1c done today is at 6.4% (was at 5.8% a few months ago) - goal is at least <7.0% Patient has not yet been started on or required any Rx for her diabetes so far and has just been keeping it under control with diet modification/restriction alone but have cautioned her that her HgbA1c has increased significantly from previous and she is now at the brink of being a certified diabetic Her daughter states that she has been eating a lot of candies and also eats often at night - have advised her that these habits need to be discontinued or so will have to be started on more and more medications for her diabetes over time Reinforced diabetic diet Will start her on monotherapy with Metformin ER 500 mg QD with dinner for now (2) Mixed hyperlipidemia: Code(s): E78.2 - Mixed hyperlipidemia Plan: Results of her labs done a couple of days ago reviewed and discussed with patient - advised that her serum triglyceride level is still elevated but it has improved somewhat from last year Reinforced low cholesterol diet Continue Atorvastatin 20 mg QD and Fenofibrate 54 mg QD Will recheck her labs and fasting lipids again in 3 months for follow-up (3) Benign essential hypertension: Code(s): I10 - Essential (primary) hypertension Plan: Reinforced low sodium diet - goal is systolic BP of at least 130 to 140 mm or less Continue Amlodipine 5 mg QD (4) Asthma: Code(s): J45.909 - Unspecified asthma, uncomplicated Qualifiers: Asthma complication type: uncomplicated Asthma persistence: intermittent Asthma severity: mild Qualified Code(s): J45.20 - Mild intermittent asthma, uncomplicated Plan: Stable/controlled Continue Spiriva Respimat 2.5 mg 2 inhalations QD and Albuterol HFA 2 inhalations Q 6 hours PRN (5) Acquired hypothyroidism: Code(s): E03.9 - Hypothyroidism, unspecified Plan: Continue Levothyroxine 50 mcg QD Will recheck her TFTs in 3 months for follow up (6) GERD without esophagitis: Code(s): K21.9 - Gastro-esophageal reflux disease without esophagitis Plan: Dietary restrictions reinforced Continue Omeprazole 20 mg QD (7) Osteoarthritis: Code(s): M19.90 - Unspecified osteoarthritis, unspecified site Qualifiers: Osteoarthritis location: unspecified site Osteoarthritis type: primary Qualified Code(s): M19.91 - Primary osteoarthritis, unspecified site Plan: Continue Tramadol 50 mg Q 6 hours PRN for increased pain (8) Vitamin D deficiency: Code(s): E55.9 - Vitamin D deficiency, unspecified Plan: Continue Vitamin D3 2000 units QD Will recheck her Vitamin D level in 3 months for follow up (9) Memory impairment: Code(s): R41.3 - Other amnesia Plan: Is most likely due to cognitive impairment associated with aging Follow up with neurology as scheduled (10) Bilateral hearing loss: Code(s): H91.93 - Unspecified hearing loss, bilateral Qualifiers: Hearing loss type: unspecified Qualified Code(s): H91.93 - Unspecified hearing loss, bilateral Plan: Hearing evaluation done a few months ago revealed bilateral hearing loss, worse in the left ear Currently has hearing aid only in the right ear; was advised that a hearing aid for the left ear would not be recommended, since there is no measurable word discrimination in the ear and also since they are interested in keeping costs down Follow up with ENT as scheduled for continuing management (sees Dr. Encarnacion) (11) Onycholysis of toenail: Comment: involving the big toes bilaterally Code(s): L60.1 - Onycholysis Plan: Follow up [facility] podiatry as scheduled (12) Weight loss: Code(s): R63.4 - Abnormal weight loss Plan: This appears resolved as patient has gained over 20 pounds since her last visit Appears to have been due to her cognitive decline wherein she was literally forgetting to eat during her mealtimes Her daughter is advised to continue monitoring patient's weight closely Plan Follow up in 3 months Orders: Orders Complete Blood Count Auto Diff 3 Months D64.9 - Anemia, unspecified Comprehensive [place]. Panel Fast 3 Months E78.00 - Pure hypercholesterolemia, unspecified Lipid Panel 3 Months E78.00 - Pure hypercholesterolemia, unspecified Thyroid Stimulating Hormone 3 Months E03.9 - Hypothyroidism, unspecified UA CC w/rflx Micro + Cult 3 Months R30.0 - Dysuria Vitamin D 25-OH Total 3 Months E55.9 - Vitamin D deficiency, unspecified Microalbumin, Random (w Creat) 3 Months E11.9 - Type 2 diabetes mellitus without complications Hemoglobin A1c 3 Months E11.9 - Type 2 diabetes mellitus without complications AMB Hemoglobin A1c 06/25/23 E11.9 - Type 2 diabetes mellitus without complications Free T4 (Free Thyroxine) 3 Months E03.9 - Hypothyroidism, unspecified Medications: New metformin ER 500 mg PO QPM 30 days 30 tabs 3RF Coding Level of Care Code Est Pt Level 4 (80219) Diagnoses Type 2 diabetes mellitus without complication, without long-term current use of insulin E11.9 Mixed hyperlipidemia E78.2 Benign essential hypertension I10 Mild intermittent asthma without complication J45.20 Asthma complication type: uncomplicated Asthma persistence: intermittent Asthma severity: mild Acquired hypothyroidism E03.9 GERD without esophagitis K21.9 Primary osteoarthritis, unspecified site M19.91 Osteoarthritis location: unspecified site Osteoarthritis type: primary Vitamin D deficiency E55.9 Memory impairment R41.3 Bilateral hearing loss, unspecified hearing loss type H91.93 Hearing loss type: unspecified Onycholysis of toenail L60.1 Weight loss R63.4 Additional Codes MONICA-7 Assessment Billing - MONICA-7 Assessment Tool: MONICA-7 Assessment [id number] ([id number])
== END 2023-06-25 16:23 | disposition home or self-care (01) ==
PROVIDERS: PCP Internal Medicine; Visit Provider Internal Medicine
DX: E11.9 Type 2 diabetes mellitus without complications (principal)
CPT/HCPCS: 83036; 99214

== ENCOUNTER 2023-09-27 11:13 | Outpatient (REF) | payer MEDICARE, SELFPAY ==
[2023-09-27 11:45] LABS: MANUAL DIFF FLAG NO
[2023-09-27 12:16] LABS: Appearance Urine Cloudy; Color Urine Yellow; Glucose Urine UA Negative (Negative); Leukocyte Esterase Urine Large (3+) (Negative); Nitrite Urine Negative (Negative); PH 6.5 (5.0-9.0); UMIC TRIGGER UACC YES; Urine Blood Negative (Negative); Urine Ketones Negative (Negative); Urine Protein Negative (Neg-Trace)
[2023-09-27 12:17] LABS: Basophils Percent Auto 0.7 % (0-2); Eosinophils Absolute Auto 0.2 X10*3/uL (0.0-0.4); Eosinophils Percent Auto 3.4 % (0-4); Hematocrit 37.9 % (37.0-47.0); Hemoglobin 12.9 g/dl (12.0-16.0); Imm Gran Abs Auto 0.03 X10*3/uL (0.00-0.03); Imm Gran Pct Auto 0.7 % (0.0-0.4); Lymphocytes Absolute Auto 1.5 X10*3/uL (1.2-4.9); Lymphocytes Percent Auto 35.3 % (20-40); Mean Corpuscular Hemoglobin 31.2 pg (27.0-33.0); Mean Corpuscular Volume 91.5 fL (80.0-98.0); Mean Platelet Volume 9.5 fL (9.4-12.3); Monocytes Absolute Auto 0.4 X10*3/uL (0.1-1.2); Monocytes Percent Auto 8.7 % (2-11); Neutrophils Absolute Auto 2.2 x10*3/uL (2.0-8.3); Neutrophils Percent Auto 51.2 % (45-73); Platelet Count 254 X10*3/uL (160-400); Red Blood Count 4.14 X10*6/uL (4.20-5.50); Red Cell Distribution Width 12.9 % (11.0-16.0); White Blood Count 4.4 X10*3/uL (4.8-10.8)
[2023-09-27 12:23] LABS: Bacteria Urine Trace (None Seen); Hyaline Casts Urine 0-2 /LPF (0-2); RBC Urine 0-2 /HPF (0-2); UACC Culture Trigger YES; WBC Urine >50 /HPF (0-5)
[2023-09-27 12:32] LABS: Estimated Average Glucose 128 mg/dL; Hemoglobin A1c % 6.1 % (<6.0)
[2023-09-27 12:49] LABS: Alanine Aminotransferase 10 U/L (0-31); Albumin Level 4.6 g/dL (3.5-5.0); Alkaline Phosphatase 50 U/L (39-117); Anion Gap 15 (12-20); Aspartate Amino Transferase 13 U/L (5-31); Bilirubin Total 0.4 mg/dL (0.0-1.0); Blood Urea Nitrogen 12 mg/dL (9-16); Calcium 9.9 mg/dL (8.4-10.2); Carbon Dioxide 23 mmol/L (22-29); Chloride 108 mmol/L (96-108); Cholesterol 170 mg/dL (<200); Estimated Glomerular Filt Rate > 60; Glucose Fasting 134 mg/dL (60-99); HDL Cholesterol 49 mg/dL (>40); LDL Cholesterol Calculated 63 mg/dL (<100); Potassium 3.8 mmol/L (3.3-5.1); Sodium 142 mmol/L (135-145); Total Protein 7.3 g/dL (6.5-8.0); Triglycerides 291 mg/dL (<150)
[2023-09-27 13:07] LABS: Free T4 (Free Thyroxine) 1.02 ng/dL (0.71-1.85); Thyroid Stimulating Hormone 3.21 uIU/mL (0.32-4.0); Vitamin D 25-OH Total 33.2 ng/mL (>30)
[2023-09-27 13:14] LABS: Creatinine Urine 117.09 mg/dL; Microalbum/Creatinine Ratio Ur 14.5 ug/mg cr (<30)
== END 2023-09-27 11:14 | disposition home or self-care (01) ==
LOC: HO.LAB 11:13
PROVIDERS: PCP Internal Medicine; Visit Provider Internal Medicine
DX: E78.00 Pure hypercholesterolemia, unspecified (principal); E03.9 Hypothyroidism, unspecified; E55.9 Vitamin D deficiency, unspecified; D64.9 Anemia, unspecified; E11.9 Type 2 diabetes mellitus without complications; R30.0 Dysuria
CPT/HCPCS: 36415; 80053; 80061; 81001; 82043; 82306; 82570; 83036; 84439; 84443; 85025; 87086; 87147

== ENCOUNTER 2023-09-29 15:06 | Outpatient (AMB) | payer MEDICARE, SELFPAY ==
[2023-09-29 15:10] VITALS: BP 130/62; PULSE 66; O2SAT 99; BMI 24.9
--- NOTE | 2023-09-29 15:10 | MHC.PC.OV ---
Vital Signs 09/29/23 15:10 Height 5 ft 1 in Weight 132 lb 0.91 oz BMI 24.9 BP 130/62 Blood Pressure Location Lt brachial Position Sitting Pulse 66 Pulse Source Pulse Oximeter Pulse Oximetry (%) 99 Oxygen Delivery Method Room Air Intake Visit Reasons: DM, hyperlipidemia, HTN, dementia [employer] Helper Required: No Allergies tramadol Allergy (Severe, Verified 09/29/23 16:03) Hives lisinopril Adverse Reaction (Unknown, Verified 09/29/23 16:03) cough Medication List - Last Reconciled 09/29/23 by Damián Yuan MD albuterol sulfate 90 mcg/actuation 2 puffs inhalation Q6H PRN amlodipine 5 mg PO DAILY 90 days atorvastatin 20 mg PO DAILY cholecalciferol (vitamin D3) 50 mcg PO DAILY 90 days cyproheptadine 4 mg PO BID 60 days donepezil 10 mg PO DAILY 90 days fenofibrate 54 mg PO DAILY food supplemt, lactose-reduced (Ensure oral liquid) 1 ea PO TIDWMEAL 30 days ibuprofen 600 mg PO TID PRN levothyroxine 50 mcg PO QAM memantine 10 mg PO QPM 30 days metformin ER 500 mg PO QPM omeprazole 20 mg PO DAILY Tobacco use date assessed: 09/29/23 Fall risk assessment: 2 + Falls in past year Dental Screening Dental Screen Date: 06/25/23 HPI DM, hyperlipidemia, HTN, dementia HPI Details Patient comes in today for her follow up visit States that she has been feeling more tired than usual lately Also relates increased pain in both hips but worse on the left side - 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 one Her daughter reports that patient fell sometime about a month ago and that is also around the time she started complaining of hip pain Notes also left knee pain - thinks she hit her knee as well when she fell last month Adds that she's had some nasal congestion and on and off mild sore throat for a few days now She denies any fever; denies any headaches or dizziness Denies any chest pains, no SOB; denies any cough No nausea/vomiting, no abdominal pain No change in bowel habits noted Her daughter states that patient's memory has been slowly getting worse and she has been getting more and more forgetful as time goes by Needs her Memantine Rx refilled Had her follow up labs done a couple of days ago - to discuss her results [facility] Medical History Blurred vision, bilateral Vitamin D deficiency Overweight (BMI 25.0-29.9) Memory impairment Osteoarthritis Bilateral hearing loss Asthma GERD without esophagitis Acquired hypothyroidism Benign essential hypertension Mixed hyperlipidemia Type 2 diabetes mellitus without complication, without long-term current use of insulin Surgical History History of cataract surgery History of D&C History of tubal ligation Family History Father Lung cancer Mother Hypertension Daughter Mental health disorder Social History Housing: Apartment Alcohol intake: never Patient Tobacco Use Status: Never used Tobacco e-Cigarette/Vaping Use: Never Used Second Hand Smoke Exposure: No service: No Current occupational status: retired Cognitive needs: No Hearing needs: Yes (has upcoming appt for audiology) Vision needs: Yes Questionnaire Thrive Questionnaire Date Thrive assessed: 06/25/23 AUDIT C Alcohol Use Questionnaire (AUDIT-C) 1. How often do you have a drink containing alcohol?: Never 3. How often do you have six or more drinks on one occasion?: Never Total Score: 0 Score Reviewed/Action Taken: Yes MONICA-7 AMB Questionnaire MONICA-7 Date MONICA - 7 assessed: 06/25/23 Source: Developed by Drs. Joni James, Kristine Campa, Alex Okeefe and colleagues, with an educational suresh from [employer]. Review of Systems Const Denies difficulty sleeping (sleeps on her own schedule), Reports fatigue, Denies fever(s) and Denies headache(s) ENT Denies dysphagia, Denies dizziness, Denies otalgia, Denies headache(s), Reports hearing loss (bilaterally; worse in the left ear - now has hearing aid in right ear), Reports nasal congestion, Denies odynophagia and Reports sore throat (mild) Card Denies chest pain, Denies palpitations and Denies dyspnea Resp Denies chest congestion, Denies cough, Denies dyspnea and Denies wheezing GI Denies abdominal pain, Denies constipation, Denies dysphagia, Denies heartburn, Denies diarrhea, Denies nausea, Denies odynophagia and Denies vomiting Denies difficulty voiding, Denies nocturia, Denies dysuria and Denies urinary urgency Musc Denies back pain, Reports arthralgias (both hips; left knee - see HPI) and Denies muscle weakness Skin/Breast Details: (+) long and disfigured toenails on her big toes bilaterally Denies rash Neuro Denies dizziness, Denies headache(s) and Reports memory loss (per daughter) Psych Reports memory loss (per daughter) Endo Reports fatigue and Denies palpitations Aller/Immun Denies wheezing Physical exam (Primary Care) Vital Signs: Last Vital Signs Pulse 66 09/29/23 15:10 BP 130/62 09/29/23 15:10 Pulse Ox 99 09/29/23 15:10 Oxygen Delivery Method Room Air 09/29/23 15:10 BMI result Body Mass Index 24.9 Tobacco/Smoking Status: Tobacco use Status Tobacco use date assessed 09/29/23 09/29/23 15:11 Patient Tobacco Use Status Never used Tobacco 09/29/23 15:10 e-Cigarette/Vaping Use Never Used 09/29/23 15:10 Thrive Assessment: Date of Thrive Assessment Date Thrive assessed 06/25/23 09/29/23 15:10 Const General: no acute distress and alert HENMT Ears: TM's normal bilaterally and EAC's normal Face and sinus: No sinus tenderness Throat: Yes tonsils normal (no TP congestion) and Yes posterior oropharynx abnormal ((+) erythema of the posterior pharynx) Neck Neck: Yes no lymphadenopathy and Yes supple Thyroid: Thyroid normal Resp Auscultation: clear to auscultation bilaterally, no rales and no wheezes Cardio Rate: regular rate Rhythm: regular rhythm Heart sounds: no murmurs GI Palpation (GI): Soft to palpation and nontender Auscultation: normal bowel sounds General: Yes no CVA tenderness Back/Spine/Pelvis Back: no CVA tenderness Skin Rashes: no rashes Extrem General: Yes no clubbing, cyanosis or edema Right lower extremity: hip/thigh Details: tenderness Location: of the hip Left lower extremity: hip/thigh Details: tenderness Location: of the hip and knee Details: tenderness; no swelling Results Reviewed Results Reviewed: Laboratory Tests 09/27/23 11:43 WBC 4.4 L Hgb 12.9 Hct 37.9 Plt Count 254 Sodium 142 Potassium 3.8 Creatinine 0.73 Estimated GFR > 60 Fasting Glucose 134 H Hemoglobin A1c % 6.1 H Calcium 9.9 AST 13 ALT 10 Triglycerides 291 H Cholesterol 170 LDL Cholesterol, Calc 63 HDL Cholesterol 49 25-OH Vitamin D Total 33.2 TSH 3.21 Free T4 1.02 Ur Specific [place] 1.020 Urine Protein Negative Urine Glucose (UA) Negative Urine Blood Negative Urine Nitrite Negative Ur Leukocyte Esterase Large (3+) H Urine WBC >50 H Assessment and Plan Assessment & Plan (1) Type 2 diabetes mellitus without complication, without long-term current use of insulin: Code(s): E11.9 - Type 2 diabetes mellitus without complications Plan: Her HgbA1c was at 6.1% on her labs done a couple of days ago (in-office HgbA1c was at 6.4% a few months ago) - goal is at least <7.0% Patient has not yet required any Rx for her diabetes so far and has just been keeping it under control with diet modification/restriction alone for years but she was started on Metformin ER 500 mg Q PM at her last visit as her HgbA1c recently has increased significantly from previous Reinforced diabetic diet Continue Metformin ER 500 mg Q PM (2) Mixed hyperlipidemia: Code(s): E78.2 - Mixed hyperlipidemia Plan: Results of her labs done a couple of days ago reviewed and discussed with patient - advised that her serum triglyceride level is still elevated and has increased further from previous Reinforced low cholesterol diet Continue Atorvastatin 20 mg QD and Fenofibrate 54 mg QD for now Will recheck her labs and fasting lipids again in 4 months for follow-up (3) Benign essential hypertension: Code(s): I10 - Essential (primary) hypertension Plan: Reinforced low sodium diet - goal is systolic BP of at least 130 to 140 mm or less Continue Amlodipine 5 mg QD (4) Asthma: Code(s): J45.909 - Unspecified asthma, uncomplicated Qualifiers: Asthma complication type: uncomplicated Asthma persistence: intermittent Asthma severity: mild Qualified Code(s): J45.20 - Mild intermittent asthma, uncomplicated Plan: Stable/controlled Continue Spiriva Respimat 2.5 mg 2 inhalations QD and Albuterol HFA 2 inhalations Q 6 hours PRN (5) Acquired hypothyroidism: Code(s): E03.9 - Hypothyroidism, unspecified Plan: Continue Levothyroxine 50 mcg QD Will recheck her TFTs in 4 months for follow up (6) GERD without esophagitis: Code(s): K21.9 - Gastro-esophageal reflux disease without esophagitis Plan: Dietary restrictions reinforced Continue Omeprazole 20 mg QD (7) Osteoarthritis: Code(s): M19.90 - Unspecified osteoarthritis, unspecified site Qualifiers: Osteoarthritis location: unspecified site Osteoarthritis type: primary Qualified Code(s): M19.91 - Primary osteoarthritis, unspecified site Plan: Continue Tramadol 50 mg Q 6 hours PRN for increased pain (8) Vitamin D deficiency: Code(s): E55.9 - Vitamin D deficiency, unspecified Plan: Continue Vitamin D3 2000 units QD Will recheck her Vitamin D level in 4 months for follow up (9) Memory impairment: Code(s): R41.3 - Other amnesia Plan: Is most likely due to cognitive impairment associated with aging Follow up with neurology as scheduled (10) Bilateral hearing loss: Code(s): H91.93 - Unspecified hearing loss, bilateral Qualifiers: Hearing loss type: unspecified Qualified Code(s): H91.93 - Unspecified hearing loss, bilateral Plan: Hearing evaluation done a few months ago revealed bilateral hearing loss, worse in the left ear Currently has hearing aid only in the right ear; was advised that a hearing aid for the left ear would not be recommended, since there is no measurable word discrimination in the ear and also since they are interested in keeping costs down Follow up with ENT as scheduled for continuing management (sees Dr. Encarnacion) (11) Onycholysis of toenail: Comment: involving the big toes bilaterally Code(s): L60.1 - Onycholysis Plan: Follow up [facility] pod[facility] as scheduled (12) Hip pain, bilateral: Code(s): M25.551 - Pain in right hip; M25.552 - Pain in left hip Plan: Will send her for x-rays of both hips for further evaluation (13) Left knee pain: Code(s): M25.562 - Pain in left knee Qualifiers: Chronicity: acute Qualified Code(s): M25.562 - Pain in left knee Plan: S/P fall about a month ago Will send her for x-rays of the left knee for further evaluation (14) Upper respiratory tract infection: Code(s): J06.9 - Acute upper respiratory infection, unspecified Qualifiers: URI type: unspecified URI Qualified Code(s): J06.9 - Acute upper respiratory infection, unspecified Plan: Will start her on Amoxicillin 500 mg BID x 7 days Plan Follow up in 4 months Orders: Orders Lipid Panel 4 Months E78.00 - Pure hypercholesterolemia, unspecified Hemoglobin A1c 4 Months E11.9 - Type 2 diabetes mellitus without complications Microalbumin, Random (w Creat) 4 Months E11.9 - Type 2 diabetes mellitus without complications Free T4 (Free Thyroxine) 4 Months E03.9 - Hypothyroidism, unspecified Thyroid Stimulating Hormone 4 Months E03.9 - Hypothyroidism, unspecified UA CC w/rflx Micro + Cult 4 Months R30.0 - Dysuria Vitamin B12 and Folate 4 Months E53.8 - Deficiency of other specified B group vitamins XR hip BI w PEL1V 24 M25.551 - Pain in right hip, M25.552 - Pain in left hip, Z91.81 - History of falling XR knee LT 4V 15/24 M25.562 - Pain in left knee, Z91.81 - History of falling Complete Blood Count Auto Diff 4 Months D64.9 - Anemia, unspecified Comprehensive [place]. Panel Fast 4 Months E78.00 - Pure hypercholesterolemia, unspecified Vitamin D 25-OH Total 4 Months E55.9 - Vitamin D deficiency, unspecified Medications: New amoxicillin 875 mg PO BID 7 days 14 tabs 0RF Refilled memantine 10 mg PO QPM 30 days 30 tabs 0RF Coding Level of Care Code Est Pt Level 4 (00278) Diagnoses Type 2 diabetes mellitus without complication, without long-term current use of insulin E11.9 Mixed hyperlipidemia E78.2 Benign essential hypertension I10 Mild intermittent asthma without complication J45.20 Asthma complication type: uncomplicated Asthma persistence: intermittent Asthma severity: mild Acquired hypothyroidism E03.9 GERD without esophagitis K21.9 Primary osteoarthritis, unspecified site M19.91 Osteoarthritis location: unspecified site Osteoarthritis type: primary Vitamin D deficiency E55.9 Memory impairment R41.3 Bilateral hearing loss, unspecified hearing loss type H91.93 Hearing loss type: unspecified Onycholysis of toenail L60.1 Hip pain, bilateral M25.551; M25.552 Acute pain of left knee M25.562 Chronicity: acute Upper respiratory tract infection, unspecified type J06.9 URI type: unspecified URI
== END 2023-09-29 16:14 | disposition home or self-care (01) ==
PROVIDERS: PCP Internal Medicine; Visit Provider Internal Medicine
DX: E11.9 Type 2 diabetes mellitus without complications (principal); E78.2 Mixed hyperlipidemia; I10 Essential (primary) hypertension; J45.20 Mild intermittent asthma, uncomplicated; E03.9 Hypothyroidism, unspecified; K21.9 Gastro-esophageal reflux disease without esophagitis; M19.91 Primary osteoarthritis, unspecified site; E55.9 Vitamin D deficiency, unspecified; R41.3 Other amnesia; H91.93 Unspecified hearing loss, bilateral; L60.1 Onycholysis; M25.551 Pain in right hip
CPT/HCPCS: 99214

== ENCOUNTER 2023-09-29 16:24 | Outpatient (REF) | payer MEDICARE, SELFPAY ==
--- NOTE | ~2023-09-29 | XR_ITS ---
EXAMINATION: XR BILATERAL HIPS WITH AP PELVIS CLINICAL INFORMATION: Pain in the right and left hip COMPARISON: X-ray of the lumbar sacral spine September 2017 TECHNIQUE: AP view of the pelvis and 2 views of each hip were obtained. FINDINGS: Right hip: Hip joint surrounding bone and soft tissues are normal. Left hip: Hip joint surrounding bone and soft tissues are normal. Pelvis: Hips as above. Remaining bone and joints in the pelvis normal. Spondylosis of the partially visualized lumbar sacral spine with nonuniform disc space narrowing at the L4-L5 level prominent on the left. XR/XR hip BI w PEL1V IMPRESSION: RIGHT HIP: Normal. LEFT HIP: Normal. PELVIS: Incidental note made of spondylosis of the partially visualized lumbar sacral spine. Similar findings present on the x-ray lumbar sacral spine September 2017
--- NOTE | ~2023-09-29 | XR_ITS ---
EXAMINATION: XR KNEE, LEFT CLINICAL INFORMATION: Pain in left knee COMPARISON: None available. TECHNIQUE: Four views of the left knee. FINDINGS: Lateral compartment there is joint space narrowing marginal osteophytes indicative of mild to moderate osteoarthritis. Medial compartment: Normal. Patellofemoral compartment: Marginal osteophytes with nonuniform joint space narrowing indicative of mild to moderate osteoarthritis. No effusion. XR/XR knee LT 4V IMPRESSION: Mild to moderate osteoarthritis of the left knee.
== END 2023-09-29 16:25 | disposition home or self-care (01) ==
LOC: HO.XRAY 16:24
PROVIDERS: PCP Internal Medicine; Visit Provider Internal Medicine
DX: M25.562 Pain in left knee (principal); M25.551 Pain in right hip; M25.552 Pain in left hip; Z91.81 History of falling
CPT/HCPCS: 73521; 73564

== ENCOUNTER 2024-01-31 08:40 | Outpatient (REF) | payer MEDICARE, SELFPAY ==
[2024-01-31 09:18] LABS: MANUAL DIFF FLAG NO
[2024-01-31 09:47] LABS: Appearance Urine Clear; Color Urine Yellow; Glucose Urine UA Negative (Negative); Leukocyte Esterase Urine Moderate (2+) (Negative); Nitrite Urine Negative (Negative); PH 6.5 (5.0-9.0); Specific Gravity - Urine 1.015 (1.005-1.025); UMIC TRIGGER UACC YES; Urine Blood Negative (Negative); Urine Ketones Negative (Negative); Urine Protein Negative (Neg-Trace)
[2024-01-31 09:49] LABS: Basophils Percent Auto 0.6 % (0-2); Eosinophils Absolute Auto 0.2 X10*3/uL (0.0-0.4); Eosinophils Percent Auto 3.1 % (0-4); Hematocrit 32.5 % (37.0-47.0); Imm Gran Abs Auto 0.02 X10*3/uL (0.00-0.03); Imm Gran Pct Auto 0.4 % (0.0-0.4); Lymphocytes Absolute Auto 1.8 X10*3/uL (1.2-4.9); Lymphocytes Percent Auto 35.2 % (20-40); Mean Corpuscular HGB Conc 33.8 g/dl (31.0-35.0); Mean Corpuscular Hemoglobin 32.8 pg (27.0-33.0); Mean Platelet Volume 9.4 fL (9.4-12.3); Monocytes Absolute Auto 0.5 X10*3/uL (0.1-1.2); Monocytes Percent Auto 10.2 % (2-11); Neutrophils Absolute Auto 2.6 x10*3/uL (2.0-8.3); Neutrophils Percent Auto 50.5 % (45-73); Platelet Count 257 X10*3/uL (160-400); Red Blood Count 3.35 X10*6/uL (4.20-5.50); Red Cell Distribution Width 14.2 % (11.0-16.0); White Blood Count 5.1 X10*3/uL (4.8-10.8)
[2024-01-31 09:57] LABS: Bacteria Urine None Seen (None Seen); Hyaline Casts Urine 0-2 /LPF (0-2); RBC Urine 0-2 /HPF (0-2); UACC Culture Trigger YES; WBC Urine 21-50 /HPF (0-5)
[2024-01-31 10:03] LABS: Estimated Average Glucose 100 mg/dL; Hemoglobin A1c % 5.1 % (<6.0)
[2024-01-31 10:25] LABS: Alanine Aminotransferase 9 U/L (0-31); Albumin Level 4.3 g/dL (3.5-5.0); Alkaline Phosphatase 43 U/L (39-117); Anion Gap 13 (12-20); Aspartate Amino Transferase 16 U/L (5-31); Bilirubin Total 0.3 mg/dL (0.0-1.0); Blood Urea Nitrogen 12 mg/dL (9-16); Carbon Dioxide 23 mmol/L (22-29); Chloride 110 mmol/L (96-108); Cholesterol 190 mg/dL (<200); Estimated Glomerular Filt Rate > 60; Glucose Fasting 116 mg/dL (60-99); HDL Cholesterol 50 mg/dL (>40); LDL Cholesterol Calculated 89 mg/dL (<100); Potassium 3.3 mmol/L (3.3-5.1); Sodium 143 mmol/L (135-145); Total Protein 6.6 g/dL (6.5-8.0); Triglycerides 258 mg/dL (<150)
[2024-01-31 10:42] LABS: Creatinine Urine 74.53 mg/dL; Microalbum/Creatinine Ratio Ur 18.7 ug/mg cr (<30)
[2024-01-31 10:45] LABS: Free T4 (Free Thyroxine) 0.86 ng/dL (0.71-1.85); Thyroid Stimulating Hormone 6.44 uIU/mL (0.32-4.0); Vitamin D 25-OH Total 42.8 ng/mL (>30)
[2024-01-31 10:55] LABS: Folate 14.7 ng/mL (> or = 4.0); Vitamin B12 329 pg/mL (200-900)
== END 2024-01-31 08:41 | disposition home or self-care (01) ==
LOC: HO.LAB 08:40
PROVIDERS: PCP Internal Medicine; Visit Provider Internal Medicine
DX: D64.9 Anemia, unspecified (principal); E11.9 Type 2 diabetes mellitus without complications; E03.9 Hypothyroidism, unspecified; E53.8 Deficiency of other specified B group vitamins; E78.00 Pure hypercholesterolemia, unspecified; E55.9 Vitamin D deficiency, unspecified; R30.0 Dysuria
CPT/HCPCS: 36415; 80053; 80061; 81001; 82043; 82306; 82570; 82607; 82746; 83036; 84439; 84443; 85025; 87086; 87147

== ENCOUNTER 2024-02-01 12:57 | Outpatient (AMB) | payer MEDICARE, SELFPAY ==
[2024-02-01 13:08] VITALS: BP 124/80; PULSE 77; O2SAT 99; BMI 22.0
--- NOTE | 2024-02-01 13:08 | MHC.PC.OV ---
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: No Accompanied by: Self / Same As Patient Allergies tramadol Allergy (Severe, Verified 02/01/24 13:36) Hives lisinopril Adverse Reaction (Unknown, Verified 02/01/24 13:36) cough Medication List - Last Reconciled 02/01/24 by Damián Yuan MD albuterol sulfate 90 mcg/actuation 2 puffs inhalation Q6H PRN amlodipine 5 mg PO DAILY 90 days atorvastatin 20 mg PO DAILY cholecalciferol (vitamin D3) 50 mcg PO DAILY 90 days cyproheptadine 4 mg PO BID 60 days donepezil 10 mg PO DAILY 90 days fenofibrate 54 mg PO DAILY food supplemt, lactose-reduced (Ensure oral liquid) 1 ea PO TIDWMEAL 30 days ibuprofen 600 mg PO TID PRN levothyroxine 50 mcg PO QAM memantine 10 mg PO QPM 30 days metformin ER 500 mg PO QPM omeprazole 20 mg PO DAILY Tobacco use date assessed: 02/01/24 Fall risk assessment: 2 + Falls in past year Last assessed Fall Risk: 02/01/24 Dental Screening Dental Screen Date: 02/01/24 Did you have a dental visit in the last 12 months?: No Did you have a dental problem in the last 6 months where you did not have access to dental care?: No Was dental information given to patient?: No HPI 4mof\u HPI Details Patient comes in today for her follow up visit States that she has been experiencing on and off dizziness lately - notes that these would occur randomly with no apparent triggers or precipitating events or situations Patient denies any headaches Denies any chest pains, no increased SOB No nausea/vomiting, no abdominal pain No change in bowel habits noted She appears to have lost quite a bit of weight (about 15 to 16 pounds) since her last visit Patient claims that she eats well but her daughter thinks otherwise and feels that her mother is not really eating much of anything all day long She had her follow up labs done yesterday - to discuss her results [facility] Medical History Blurred vision, bilateral Vitamin D deficiency Overweight (BMI 25.0-29.9) Memory impairment Osteoarthritis Bilateral hearing loss Asthma GERD without esophagitis Acquired hypothyroidism Benign essential hypertension Mixed hyperlipidemia Type 2 diabetes mellitus without complication, without long-term current use of insulin Surgical History History of cataract surgery History of D&C History of tubal ligation Family History Father Lung cancer Mother Hypertension Daughter Mental health disorder Social History Housing: Apartment Alcohol intake: never Patient Tobacco Use Status: Never used Tobacco e-Cigarette/Vaping Use: Never Used Second Hand Smoke Exposure: No service: No Current occupational status: retired Cognitive needs: No Hearing needs: Yes (has upcoming appt for audiology) Vision needs: Yes Questionnaire PHQ-9 Over the last 2 weeks, how often have you been bothered by any of the following problems? 1. Little interest or pleasure in doing things: not at all 2. Feeling down, depressed, or hopeless: not at all 3. Trouble falling or staying asleep, or sleeping too much: not at all 4. Feeling tired or having little energy: not at all 5. Poor appetite or overeating: not at all 6. Feeling bad about yourself - or that you are a failure or have let yourself or your family down: not at all 7. Trouble concentrating on things, such as reading the newspaper or watching television: not at all 8. Moving or speaking so slowly that other people could have noticed. Or the opposite - being so fidgety or restless that you have been moving around a lot more than usual: not at all 9. Thoughts that you would be better off or of hurting yourself in some way: not at all Total score: 0 Depression Screening Interpretation: Negative Depression Screening Done: Yes 34758 - PHQ-9 Billing: Yes Source: Developed by Drs. Joni James, Kristine Campa, Alex Okeefe and colleagues, with an educational suresh from [employer]. Thrive Questionnaire Date Thrive assessed: 02/01/24 I am a: Patient What is your living situation today?: I have a steady place to live Within the past 12 months, did the food you bought not last and you didn't have the money to get more?: Never true Within the past 12 months, did you worry whether your food would run out before you got money to buy more?: Never true Do you have trouble paying for medicines?: No Do you have trouble getting transportation to medical appointments?: No Do you have trouble paying your heating and electricity bill?: No Do you have trouble taking care of your child, family member or friend?: No Do you have trouble with day-to-day activities such as bathing, preparing meals, shopping, managing finances, etc.?: No Are you currently unemployed and looking for a job?: No Are you interested in more education?: No Please select the resources that you would like help with: None Currently or been in a relationship where the following occur: No concerns reported THRIVE Score: 0 AUDIT C Alcohol Use Questionnaire (AUDIT-C) 1. How often do you have a drink containing alcohol?: Never 3. How often do you have six or more drinks on one occasion?: Never Total Score: 0 Score Reviewed/Action Taken: Yes MONICA-7 AMB Questionnaire MONICA-7 Date MONICA - 7 assessed: 02/01/24 Feeling nervous, anxious, or on edge: 0 = Not at all Not being able to stop or control worryin = Not at all Worrying too much about different things: 0 = Not at all Trouble relaxin = Not at all Being so restless that it is hard to sit still: 0 = Not at all Becoming easily annoyed or irritable: 0 = Not at all Feeling afraid as if something awful might happen: 0 = Not at all Total MONICA-7 score (0-4 normal; 5-9 mild; 10-14 moderate; 15-21 severe): 0 Source: Developed by Drs. Joni James, Kristine Campa, Alex Okeefe and colleagues, with an educational suresh from [employer]. Review of Systems Const Denies difficulty sleeping (sleeps on her own schedule), Reports fatigue, Denies fever(s), Denies headache(s), Denies poor appetite (but patient's daughter thinks that patient is really not eating when alone) and Reports weight loss ENT Denies dysphagia, Reports dizziness (on and off lately), Denies otalgia, Denies headache(s), Reports hearing loss (bilaterally; worse in the left ear - now has hearing aid in right ear), Denies odynophagia and Denies sore throat Card Denies chest pain, Denies palpitations and Denies dyspnea Resp Denies chest congestion, Denies cough, Denies dyspnea and Denies wheezing GI Denies abdominal pain, Denies constipation, Denies dysphagia, Denies heartburn, Denies diarrhea, Denies nausea, Denies odynophagia and Denies vomiting Denies difficulty voiding, Denies nocturia, Denies dysuria and Denies urinary urgency Musc Denies back pain, Reports arthralgias (both hips; left knee - see HPI) and Denies muscle weakness Skin/Breast Details: (+) long and disfigured toenails on her big toes bilaterally Denies rash Neuro Reports dizziness (on and off lately), Denies headache(s) and Reports memory loss (per daughter) Psych Reports memory loss (per daughter) Endo Reports fatigue and Denies palpitations Aller/Immun Denies wheezing Physical exam (Primary Care) Vital Signs: Last Vital Signs Pulse 77 02/01/24 13:08 BP 124/80 02/01/24 13:08 Pulse Ox 99 02/01/24 13:08 Oxygen Delivery Method Room Air 02/01/24 13:08 BMI result Body Mass Index 22.0 Tobacco/Smoking Status: Tobacco use Status Tobacco use date assessed 02/01/24 02/01/24 13:10 Patient Tobacco Use Status Never used Tobacco 02/01/24 13:10 e-Cigarette/Vaping Use Never Used 02/01/24 13:10 PHQ-9: PHQ-9 Score PHQ-9: Total score 0 02/01/24 13:42 Depression Screening Interpretation: Negative Thrive Assessment: Date of Thrive Assessment Date Thrive assessed 02/01/24 02/01/24 13:10 Currently or been in a relationship where the following occur: No concerns reported Const General: no acute distress and alert HENMT Ears: TM's normal bilaterally and EAC's normal Throat: Yes posterior oropharynx normal and Yes tonsils normal (no TP congestion) Neck Neck: Yes no lymphadenopathy and Yes supple Thyroid: Thyroid normal Resp Auscultation: clear to auscultation bilaterally, no rales and no wheezes Cardio Rate: regular rate Rhythm: regular rhythm Heart sounds: no murmurs GI Palpation (GI): Soft to palpation and nontender Auscultation: normal bowel sounds General: Yes no CVA tenderness Back/Spine/Pelvis Back: no CVA tenderness Skin Rashes: no rashes Extrem General: Yes no clubbing, cyanosis or edema Right lower extremity: hip/thigh Details: tenderness Location: of the hip Left lower extremity: hip/thigh Details: tenderness Location: of the hip and knee Details: tenderness; no swelling Results Reviewed Results Reviewed: Laboratory Tests 01/31/24 01/31/24 09:10 09:16 WBC 5.1 Hgb 11.0 L Hct 32.5 L Plt Count 257 Sodium 143 Potassium 3.3 Creatinine 0.82 Estimated GFR > 60 Fasting Glucose 116 H Hemoglobin A1c % 5.1 Calcium 10.0 AST 16 ALT 9 Triglycerides 258 H Cholesterol 190 LDL Cholesterol, Calc 89 HDL Cholesterol 50 Vitamin B12 329 25-OH Vitamin D Total 42.8 TSH 6.44 H Free T4 0.86 Ur Specific Mayo 1.015 Urine Protein Negative Urine Glucose (UA) Negative Urine Blood Negative Urine Nitrite Negative Ur Leukocyte Esterase Moderate (2+) H Microalb/Creat Ratio 18.7 Assessment and Plan Assessment & Plan (1) Type 2 diabetes mellitus without complication, without long-term current use of insulin: Code(s): E11.9 - Type 2 diabetes mellitus without complications Plan: Her HgbA1c was at 5.1% on her labs done yesterday (was at 6.1% a few months ago) - goal is at least <7.0% Reinforced diabetic diet Patient has not required any Rx for her diabetes and was just keeping it under control with diet modification/restriction alone for years but she was eventually started on Metformin ER 500 mg Q PM a few months ago as her HgbA1c had recently gone up significantly Her HgbA1c has now gone down significantly over the past few months, likely related to her recent weight loss and her reportedly not eating lately For now, will have patient HOLD her Metformin ER 500 mg Q PM - have emphasized to patient's daughter that she needs to help reinforce this to patient as she may not remember this due to her declining cognition We will see how her labs are over the next few months and if her glycemic control remains the same, will likely go ahead and permanently discontinue her Metformin ER then Will have patient recheck her FBS and HgbA1c in 3 months for follow up (2) Mixed hyperlipidemia: Code(s): E78.2 - Mixed hyperlipidemia Plan: Results of her labs done yesterday reviewed and discussed with patient - her serum triglyceride level is still elevated but all of her other numbers are at goal Reinforced low cholesterol diet Continue Atorvastatin 20 mg QD and Fenofibrate 54 mg QD Will recheck her labs and fasting lipids in 3 months for follow-up (3) Benign essential hypertension: Code(s): I10 - Essential (primary) hypertension Plan: Reinforced low sodium diet - goal is systolic BP of at least 130 to 140 mm or less Continue Amlodipine 5 mg QD (4) Asthma: Code(s): J45.909 - Unspecified asthma, uncomplicated Qualifiers: Asthma complication type: uncomplicated Asthma persistence: intermittent Asthma severity: mild Qualified Code(s): J45.20 - Mild intermittent asthma, uncomplicated Plan: Stable/controlled Continue Spiriva Respimat 2.5 mg 2 inhalations QD and Albuterol HFA 2 inhalations Q 6 hours PRN (5) Acquired hypothyroidism: Code(s): E03.9 - Hypothyroidism, unspecified Plan: Her TFTs are normal on her recent labs Continue Levothyroxine 50 mcg QD Will recheck her TFTs in 3 months for follow up (6) GERD without esophagitis: Code(s): K21.9 - Gastro-esophageal reflux disease without esophagitis Plan: Dietary restrictions reinforced Continue Omeprazole 20 mg QD (7) Osteoarthritis: Code(s): M19.90 - Unspecified osteoarthritis, unspecified site Qualifiers: Osteoarthritis location: unspecified site Osteoarthritis type: primary Qualified Code(s): M19.91 - Primary osteoarthritis, unspecified site Plan: Continue Tramadol 50 mg Q 6 hours PRN for increased pain (8) Vitamin D deficiency: Code(s): E55.9 - Vitamin D deficiency, unspecified Plan: Continue Vitamin D3 2000 units QD (9) Memory impairment: Code(s): R41.3 - Other amnesia Plan: This is most likely due to cognitive impairment associated with aging Follow up with neurology as scheduled (10) Bilateral hearing loss: Code(s): H91.93 - Unspecified hearing loss, bilateral Qualifiers: Hearing loss type: unspecified Qualified Code(s): H91.93 - Unspecified hearing loss, bilateral Plan: Hearing evaluation done a few months ago revealed bilateral hearing loss, worse in the left ear She currently has hearing aid only in the right ear; was advised that a hearing aid for the left ear would not be recommended, since there is no measurable word discrimination in the ear and also since they are interested in keeping costs down Follow up with ENT as scheduled for continuing management (sees Dr. Encarnacion) (11) Onycholysis of toenail: Comment: involving the big toes bilaterally Code(s): L60.1 - Onycholysis Plan: Follow up [facility] pod[facility]ry as scheduled (12) Hip pain, bilateral: Code(s): M25.551 - Pain in right hip; M25.552 - Pain in left hip Plan: Patient is advised that her hip x-rays done a few months ago came out normal Advised that if her hips continue to bother her, will consider referring her to orthopedics (13) Left knee pain: Code(s): M25.562 - Pain in left knee Qualifiers: Chronicity: acute Qualified Code(s): M25.562 - Pain in left knee Plan: S/P fall about a month ago Left knee x-rays done in September 2023 revealed (+) Mild to moderate osteoarthritis of the left knee Will consider referring her to orthopedics if she continues to experience increased knee pain (14) Weight loss: Code(s): R63.4 - Abnormal weight loss Plan: Patient has lost about 15 to 16 pounds since her last visit This is likely due to poor oral intake although patient denies this Will start her back on Cyproheptadine 4 mg BID to help increase her appetite Plan Follow up in 3 months Orders: Orders Complete Blood Count Auto Diff 3 Months D64.9 - Anemia, unspecified Comprehensive Cubero. Panel Fast 3 Months E78.00 - Pure hypercholesterolemia, unspecified Microalbumin, Random (w Creat) 3 Months E11.9 - Type 2 diabetes mellitus without complications Thyroid Stimulating Hormone 3 Months E03.9 - Hypothyroidism, unspecified UA CC w/rflx Micro + Cult 3 Months R30.0 - Dysuria Vitamin D 25-OH Total 3 Months E55.9 - Vitamin D deficiency, unspecified Hemoglobin A1c 3 Months E11.9 - Type 2 diabetes mellitus without complications Lipid Panel 3 Months E78.00 - Pure hypercholesterolemia, unspecified Free T4 (Free Thyroxine) 3 Months E03.9 - Hypothyroidism, unspecified Vitamin B12 and Folate 3 Months E53.8 - Deficiency of other specified B group vitamins Medications: Refilled cyproheptadine 4 mg PO BID 60 days 120 tabs 2RF R41.89 - Other symptoms and signs involving cognitive functions and awareness, R63.0 - Anorexia On Hold metformin ER Hold Comment: Doctor's Order 500 mg PO QPM 90 tabs 1RF Coding Level of Care Code Est Pt Level 4 (66451) Complex EM visit Add On G2211 Diagnoses Type 2 diabetes mellitus without complication, without long-term current use of insulin E11.9 Mixed hyperlipidemia E78.2 Benign essential hypertension I10 Mild intermittent asthma without complication J45.20 Asthma complication type: uncomplicated Asthma persistence: intermittent Asthma severity: mild Acquired hypothyroidism E03.9 GERD without esophagitis K21.9 Primary osteoarthritis, unspecified site M19.91 Osteoarthritis location: unspecified site Osteoarthritis type: primary Vitamin D deficiency E55.9 Memory impairment R41.3 Bilateral hearing loss, unspecified hearing loss type H91.93 Hearing loss type: unspecified Onycholysis of toenail L60.1 Hip pain, bilateral M25.551; M25.552 Acute pain of left knee M25.562 Chronicity: acute Weight loss R63.4
== END 2024-02-01 13:50 | disposition home or self-care (01) ==
PROVIDERS: PCP Internal Medicine; Visit Provider Internal Medicine
DX: E11.9 Type 2 diabetes mellitus without complications (principal); E78.2 Mixed hyperlipidemia; I10 Essential (primary) hypertension; J45.20 Mild intermittent asthma, uncomplicated; E03.9 Hypothyroidism, unspecified; K21.9 Gastro-esophageal reflux disease without esophagitis; M19.91 Primary osteoarthritis, unspecified site; E55.9 Vitamin D deficiency, unspecified; R41.3 Other amnesia; H91.93 Unspecified hearing loss, bilateral; L60.1 Onycholysis; M25.551 Pain in right hip; M25.552 Pain in left hip; M25.562 Pain in left knee; R63.4 Abnormal weight loss

== ENCOUNTER → 2024-02-01 12:57 | Outpatient (BNVA) | payer MEDICARE, SELFPAY | PROVIDERS: PCP Internal Medicine; Visit Provider Internal Medicine | DX: E11.9 Type 2 diabetes mellitus without complications (principal); E78.2 Mixed hyperlipidemia; I10 Essential (primary) hypertension; J45.20 Mild intermittent asthma, uncomplicated; E03.9 Hypothyroidism, unspecified; K21.9 Gastro-esophageal reflux disease without esophagitis; M19.91 Primary osteoarthritis, unspecified site; E55.9 Vitamin D deficiency, unspecified | CPT/HCPCS: 99212 ==

== ENCOUNTER 2024-06-12 11:33 | Outpatient (REF) | payer MEDICARE, SELFPAY ==
[2024-06-12 11:48] LABS: MANUAL DIFF FLAG NO
[2024-06-12 12:07] LABS: Basophils Absolute Auto 0.1 X10*3/uL (0.0-0.2); Basophils Percent Auto 0.8 % (0-2); Eosinophils Absolute Auto 0.2 X10*3/uL (0.0-0.4); Eosinophils Percent Auto 3.2 % (0-4); Hemoglobin 10.8 g/dl (12.0-16.0); Imm Gran Abs Auto 0.02 X10*3/uL (0.00-0.03); Imm Gran Pct Auto 0.3 % (0.0-0.4); Lymphocytes Absolute Auto 2.4 X10*3/uL (1.2-4.9); Lymphocytes Percent Auto 38.4 % (20-40); Mean Corpuscular HGB Conc 31.8 g/dl (31.0-35.0); Mean Corpuscular Hemoglobin 29.6 pg (27.0-33.0); Mean Corpuscular Volume 93.2 fL (80.0-98.0); Mean Platelet Volume 9.1 fL (9.4-12.3); Monocytes Absolute Auto 0.6 X10*3/uL (0.1-1.2); Monocytes Percent Auto 8.8 % (2-11); Neutrophils Absolute Auto 3.1 x10*3/uL (2.0-8.3); Neutrophils Percent Auto 48.5 % (45-73); Platelet Count 331 X10*3/uL (160-400); Red Blood Count 3.65 X10*6/uL (4.20-5.50); Red Cell Distribution Width 14.9 % (11.0-16.0); White Blood Count 6.3 X10*3/uL (4.8-10.8)
[2024-06-12 12:17] LABS: Estimated Average Glucose 120 mg/dL; Hemoglobin A1C 112.7711 umol/L; Hemoglobin A1c % 5.8 % (<6.0); Total Hemoglobin (HGBA1C) 2832.8322 umol/L
[2024-06-12 12:29] LABS: Creatinine Urine 79.96 mg/dL
[2024-06-12 12:40] LABS: Microalbum/Creatinine Ratio Ur 1456.9 ug/mg cr (<30)
[2024-06-12 12:42] LABS: Alanine Aminotransferase 11 U/L (0-31); Albumin Level 4.2 g/dL (3.5-5.0); Alkaline Phosphatase 63 U/L (39-117); Anion Gap 10 (12-20); Aspartate Amino Transferase 20 U/L (5-31); Bilirubin Total 0.3 mg/dL (0.0-1.0); Blood Urea Nitrogen 13 mg/dL (9-16); Calcium 9.4 mg/dL (8.4-10.2); Carbon Dioxide 24 mmol/L (22-29); Chloride 110 mmol/L (96-108); Cholesterol 173 mg/dL (<200); Estimated Glomerular Filt Rate > 60; Glucose Fasting 144 mg/dL (60-99); HDL Cholesterol 36 mg/dL (>40); LDL Cholesterol Calculated 65 mg/dL (<100); Potassium 3.1 mmol/L (3.3-5.1); Sodium 141 mmol/L (135-145); Total Protein 7.3 g/dL (6.5-8.0); Triglycerides 364 mg/dL (<150)
[2024-06-12 12:57] LABS: Free T4 (Free Thyroxine) 1.13 ng/dL (0.71-1.85); Thyroid Stimulating Hormone 2.86 uIU/mL (0.32-4.0); Vitamin D 25-OH Total 54.5 ng/mL (>30)
[2024-06-12 12:59] LABS: Appearance Urine Turbid; Color Urine Yellow; Glucose Urine UA Negative (Negative); Nitrite Urine Negative (Negative); Specific Gravity - Urine >= 1.030 (1.005-1.025); UMIC TRIGGER UACC YES; Urine Blood Moderate (2+) (Negative); Urine Ketones Trace mg/dL (Negative); Urine Protein 100 (2+) mg/dL (Neg-Trace)
[2024-06-12 13:02] LABS: Leukocyte Esterase Urine Large (3+) (Negative)
[2024-06-12 13:09] LABS: Folate 15.7 ng/mL (> or = 4.0); Vitamin B12 898 pg/mL (200-900)
[2024-06-12 13:25] LABS: Bacteria Urine 3+ (None Seen); Hyaline Casts Urine 0-2 /LPF (0-2); UACC Culture Trigger YES; WBC Clumps Urine Present; WBC Urine >50 /HPF (0-5)
--- OUTSIDE RECORDS SUMMARY | 2024-06-12 16:32 | XMS_ITS ---
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 Name Role Phone Daimán Yaun MD Primary Care Provider Ashley horton Venice Martinez Unavailable [phone] Rubin Hayes [phone] Encounters Encounter Location Date Provider Diagnosis [address] [address] 06/08/2023 Rubin Hayes Plan Of Treatment No Information Progress Notes * Altagracia JACKSON HDOB:1945 (79 yo F)Acc No.[id number]:06/08/2023 Progress Notes Patient:?Altagracia JACKSON Provider:?Rubin Hayes DPM :1945???Age:78 Y???Sex:Female D ate:06/08/2023 Phone: Address:[address] [place] [address] [address], [id number] Pcp:Damián Yuan MD Subjective: * Chief Complaints: * ??? * Medical History:? Objective: * Vitals:? Assessment: Plan: * Treatment: * Images: * The named appointment provid er may or may not be the originator of this progress note, and it is not deemed complete until electronically signed by the appointment provider. Sign off status: Pending * Provider:?Rubin Hayes DPM Date:?2023 Generated for Ivonne leung/Lety/eTransmitting on:?06/12/2024 04:31 PM EST
--- OUTSIDE RECORDS SUMMARY | 2024-06-12 16:32 | XMS_ITS | Patient Health Record ---
Author Organization [facility] [place] Address [address] [facility] [place] [address] Care Team Providers Care Paperhanger Pipe Name Role Phone Damián Yuan MD Primary Care Provider Venice Martines Unavailable [phone] Allergies Allergen (clinical drug ingredient) Drug/Non Drug Allergy documented on EMR Reaction Allergy Type Onset Date Status lisinopril Lisinopril cough Drug Allergy Activ e tramadol traMADol HCl hives Drug Allergy Acti ve Reason For Referral No Information Medications Medication SIG (Take, Route, Frequency, Duration) Notes Start Date End Date Status Vitamin D3 50 MCG (1999) 1 capsule Or ally Once a day for 30 day(s) Active Donepezil HCl 10 MG 1 tablet at bedtime Orally Once a day for 30 day(s) Active metFORMIN HCl 500 MG 1 tablet with a deborah l Orally Once a day Active amLODIPine Besylate 5 MG 1 tablet Orally Once a day for 30 day(s) Active Atorvastatin Calcium 20 MG 1 tablet Oral ly Once a day for 30 day(s) Active Levothyroxine Sodium 50 MCG 1 tablet in the morning on an empty stomach Orally Once a day for 30 day(s) Active Fenofibrate 54 MG 1 tablet with food Orally Once a day for 30 day(s) Active Ibuprofen 600 MG 1 tablet with food o r milk as needed Orally Three times a day Active Cyproheptadine HCl 4 MG 1 tablet Orally Twice a day Active Ensure - as directed Orally A ctive Albuterol Sulfate 108 (90 Base) MCG/ACT 1 puff as needed Inhalation every 4 hrs Active Memantine HCl 10 MG 1 tablet Orally Once a day for 30 day(s) Active Omeprazole 20 MG 1 capsule 30 minutes before morning meal Orally Once a day for 30 day(s) Active Social History Tobacco Use: Social History Observation Description Date Details (start date - stop date) Never Smoker NA - NA Tobacco Use/Smoking Question Answer Notes Are you a: nonsmoker Additional Findings: Tobacco Non-User Current no n-smoker Alcohol Screen Question Answer Notes Did you have a drink containing alcohol in the p ast year? No Points 0 Interpretation Negative Encounters Encounter Location Date Provider Diagnosis [facility] [place] [address] [place] [address] 08/26/2023 Venice Martinez Plan Of Treatment No Information Insurance Providers Payer Name Payer Address Payer Phone Subscriber Number Group Number Insured Name Patient Relationship to Insured Coverage Start Date Coverage End Date Medicare National [employer] [address] [place] [address] [id number] Rivera Altagracia Self - patient is the insured Medical (General) History Medical History History ICD Code Vitamin D deficiency Memory impairment osteoarthritis Hearing loss asthma Reflux ( GERD) Hypothyroidism Hypertension Hyperlipidemia type II diabetes Blurred vision, bilateral Surgical History Surgery Date(Month/Year) cataract surgery D&C tubal ligation
--- OUTSIDE RECORDS SUMMARY | 2024-06-12 16:32 | XMS_ITS ---
Author Organization [facility] Address [address] [place] [address] Care Team Providers Care General Distillery Worker Name Role Phone Tee Yuan MDneth Primary Care Provider Venice Martines Unavailable [phone] REASON FOR VISIT UG DESIGNER no show 08/25 Encounters Encounter Location Date Provider Diagnosis [facility] [address] [place] [address] 08/26/2023 Venice Martinez Plan Of Treatment No Information Progress Notes * Altagracia JACKSON HDOB:1945 (78 yo F)Acc No.[id number]:08/26/2023 Patient:?Altagracia Jackson :1945???Age:78 Y???Sex:Female Address:[address] [place] [address] [address], [place], [address] * true * Date:? Generated for Ivonne leung/Lety/eTransmitting on:?06/12/2024 04:31 PM EST
--- OUTSIDE RECORDS SUMMARY | 2024-06-12 16:32 | XMS_ITS ---
Author Organization [facility] Address [address] [facility] [place] [address] Care Team Providers Care Electromechanisms Design Drafter Name Role Phone Damián Yuan MD Primary Care Provider Venice Martines Unavailable [phone] Allergies Allergen (clinical drug ingredient) Drug/Non Drug Allergy documented on EMR Reaction Allergy Type Onset Date Status lisinopril Lisinopril cough Drug Allergy Activ e tramadol traMADol HCl hives Drug Allergy Acti ve Medications Medication SIG (Take, Route, Frequency, Duration) Notes Start Date End Date Status Levothyroxine Sodium 50 MCG 1 tablet in the morning on an empty stomach Orally Once a day for 30 day(s) Active Fenofibrate 54 MG 1 tablet with food Orally Once a day for 30 day(s) Active Ibuprofen 600 MG 1 tablet with food o r milk as needed Orally Three times a day Active Memantine HCl 10 MG 1 tablet Orally Once a day for 30 day(s) Active Omeprazole 20 MG 1 capsule 30 minutes before morning meal Orally Once a day for 30 day(s) Active metFORMIN HCl 500 MG 1 tablet with a deborah l Orally Once a day Active amLODIPine Besylate 5 MG 1 tablet Orally Once a day for 30 day(s) Active Cyproheptadine HCl 4 MG 1 tablet Orally Twice a day Active Ensure - as directed Orally A ctive Albuterol Sulfate 108 (90 Base) MCG/ACT 1 puff as needed Inhalation every 4 hrs Active Vitamin D3 50 MCG (2000 UT) 1 capsule Or ally Once a day [...] ast year? No Points 0 Interpretation Negative Vital Signs Height 5 ft 1 in in 08/26/2023 Weight 112 lbs 08/26/2023 BMI 21.16 kg/m2 08/26/2023 Encounters Encounter Location Date Provider Diagnosis [facility] [address] [place] [address] 08/26/2023 Venice Martinez Plan Of Treatment No Information Progress Notes * Altagracia JACKSON HDOB:1945 (79 yo F)Acc No.[id number]:08/26/2023 Progress Notes Patient:?Altagracia JACKSON Provider:?Venice Martinez DPM :1945???Age:78 Y???Sex:Female D ate:08/26/2023 Phone: Address:[address] [place] [address] [address], [place], [place] Pcp:Damián Yuan MD Subjective: * Chief Complaints: * ??? * ROS:?General/Constitutional:?Nausea?denies.?Vomiting?denies.?Hunger Thirst?denies.?Loss appetite?denies.?Chills?denies.?Fatigue?denies.?Fever?denies.?Night Sweats?denies.?Unexplained weight loss?denies.?Unexplained weight gain?denies.?HEENTM:?Dentures?denies.?Dizziness?denies.?Glasses/contacts?denies.?Retinopathy?de nies.?Blurred/double vision?denies.?TMJ?denies.?Discharge/drainage?denies.?Implants?denies.?Sore throat?denies.?Dental implants?denies.?Hard of hearing ?denies.?Difficulty chewing/swallowing/speaking?denies.?Nose bleeds?denies.?Sore mouth?denies.?Respiratory:?On Oxygen?denies.?Pneumonia/pleurisy?denies.?Bronchitis?denies.?Emphysema?denies.?C oughing?denies.?Cough blood?denies.?Shortness of breath?denies.?Wheezing?denies.?Cardiovascular:?Pacemaker?denies.?MVP?denies.?WPW?denies.?CHF?denies.?Heart attack?denies.?Septal defect?denies.?Rapid beat?denies.?Chest pain ?denies.?Atrial Fib.?denies.?Murmur/Palpitations?denies.?Gastrointestinal:?Hemorrhoids?denies.?Stomach/Abdominal pain?denies.?Dark blood stool?denies.?Irritable bowel ?denies.?Constipation?denies.?Diarrhea?denies.?Hematology:?Swelling?denies.?Clots?denies.?Varicose Veins?denies.?Bruising?denies.?Bleeding problem?denies.?Genitourinary:?Blood urine?denies.?Frequent/Painfu/urination/bladder control?denies.?Kidney stones?denies.?Infection (UTI)?denies.?Nephropathy?denies.?sex trans dis (STD)?denies.?Prostate?denies.?Musculoskeletal:?Hammertoes?denies.?Bunions?denies.?Back Pain?denies.?Muscle Cramps/ Resting?denies.?Muscle cramps / walking?denies.?Generalized aches and pains?denies.?Weakness?denies.?Integ.:?Shelley?denies.?Scars?denies.?Corns/calluses?denies.?Ingrown nails?denies.?Painful nails?denies.?Open Sores?denies.?Rashes?denies.?Neurologic:?Difficulty sleeping?denies.?Brain disorder?denies.?Numbness?denies.?Balance trouble?denies.?Confusion?denies.?Fainting/blackouts?denies.?Tingling?denies.?Tr emors?denies.? * Medical History:?Vitamin D d eficiency, Memory impairment, Osteoarthritis, Hearing loss, Asthma, Reflux ( GERD), Hypothyroidism, Hypertension, Hyperlipidemia, type II diabetes, Blurred vision, bilateral. * Surgical History:?cataract s urgery , D&C , tubal ligation . * Family History:?Mother: dece ased, diagnosed with Unspecified essential hypertension.?Father: , lung cancer.? * Social History:?Tobacco Use:?Tobacco Use/Smoking?Are you a:?nonsmoker ?Additional Findings: Tobacco Non-User?Current non-smoker ???Drugs/Alcohol:?Alcohol Screen?Did you have a drink containing alcohol in the past year??No ?Points?0 ?Interpretation?Negative ???Miscellaneous:?Children: yes. * Medications:?Taking metFORMI N HCl 500 MG Tablet 1 tablet with a meal Orally Once a day , Taking Ensure - Liquid as directed Orally , Taking Cyproheptadine HCl 4 MG Tablet 1 tablet Orally Twice a day , Taking Omeprazole 20 MG Capsule Delayed Release 1 capsule 30 minutes before morning meal Orally Once a day , Taking Memantine HCl 10 MG Tablet 1 tablet Orally Once a day , Taking Levothyroxine Sodium 50 MCG Tablet 1 tablet in the morning on an empty stomach Orally Once a day , Taking Ibuprofen 600 MG Tablet 1 tablet with food or milk as needed Orally Three times a day , Taking Fenofibrate 54 MG Tablet 1 tablet with food Orally Once a day , Taking Donepezil HCl 10 MG Tablet 1 tablet at bedtime Orally Once a day , Taking Vitamin D3 50 MCG (2000 UT) Capsule 1 capsule Orally Once a day , Taking Atorvastatin Calcium 20 MG Tablet 1 tablet Orally Once a day , Taking amLODIPine Besylate 5 MG Tablet 1 tablet Orally Once a day , Taking Albuterol Sulfate 108 (90 Base) MCG/ACT Aerosol Powder Breath Activated 1 puff as needed Inhalation every 4 hrs * Allergies:?traMADol HCl: hiv es, Lisinopril: cough. Objective: * Vitals:?Ht: 5 ft 1 in, Wt: 1 12, BMI:21.16. Assessment: Plan: * Treatment: * Images: * The named appointment provid er may or may not be the originator of this progress note, and it is not deemed complete until electronically signed by the appointment provider. Sign off status: Pending * Provider:?Venice Martinez DPM Date:?2023 Generated for Ivonne leung/Lety/Sarthak on:?06/12/2024 04:32 PM EST
== END 2024-06-12 11:34 | disposition home or self-care (01) ==
LOC: HO.LAB 11:33
PROVIDERS: PCP Internal Medicine; Visit Provider Internal Medicine
DX: D64.9 Anemia, unspecified (principal); E78.00 Pure hypercholesterolemia, unspecified; E03.9 Hypothyroidism, unspecified; E11.9 Type 2 diabetes mellitus without complications; E55.9 Vitamin D deficiency, unspecified; E53.8 Deficiency of other specified B group vitamins; R30.0 Dysuria
CPT/HCPCS: 36415; 80053; 80061; 81001; 81003; 82043; 82306; 82570; 82607; 82746; 83036; 84439; 84443; 85025; 87086; 87147

== ENCOUNTER → 2024-06-14 12:56 | Outpatient (BNVA) | payer MEDICARE, SELFPAY | PROVIDERS: PCP Internal Medicine; Visit Provider Internal Medicine | DX: E11.9 Type 2 diabetes mellitus without complications (principal); E78.2 Mixed hyperlipidemia; I10 Essential (primary) hypertension; J45.20 Mild intermittent asthma, uncomplicated; E03.9 Hypothyroidism, unspecified; K21.9 Gastro-esophageal reflux disease without esophagitis; M19.90 Unspecified osteoarthritis, unspecified site; E55.9 Vitamin D deficiency, unspecified; R41.3 Other amnesia; E87.6 Hypokalemia; H91.93 Unspecified hearing loss, bilateral | CPT/HCPCS: 96127; 99212 ==

== ENCOUNTER 2024-09-12 12:45 | Outpatient (AMB) | payer MEDICARE, SELFPAY ==
--- NOTE | 2024-09-12 12:59 | MHC.PC.OV ---
Vital Signs 09/12/24 13:00 Height 5 ft 1 in Weight 114 lb 6 oz BMI 21.6 BP 122/84 Blood Pressure Location Lt brachial Position Sitting Pulse 79 Pulse Source Pulse Oximeter Pulse Oximetry (%) 98 Oxygen Delivery Method Room Air Intake Visit Reasons: 3 Months Drainman Required: No Accompanied by: Self / Same As Patient Allergies tramadol Allergy (Severe, Verified 09/12/24 13:24) Hives lisinopril Adverse Reaction (Unknown, Verified 09/12/24 13:24) cough Medication List - Last Reconciled 09/12/24 by Damián Yuan MD acetaminophen 500 mg PO TID PRN 30 days albuterol sulfate 90 mcg/actuation 2 puffs inhalation Q6H PRN amlodipine 5 mg PO DAILY 90 days atorvastatin 20 mg PO DAILY cholecalciferol (vitamin D3) 50 mcg PO DAILY 90 days cyproheptadine 4 mg PO BID 60 days donepezil 10 mg PO DAILY 90 days fenofibrate 54 mg PO DAILY food supplemt, lactose-reduced (Ensure oral liquid) 1 ea PO TIDWMEAL 30 days ibuprofen 600 mg PO TID PRN levothyroxine 50 mcg PO QAM memantine 10 mg PO QPM 30 days metformin ER 500 mg PO QPM omeprazole 20 mg PO DAILY potassium chloride ER (Klor-Con) 10 mEq PO DAILY 7 days Tobacco use date assessed: 09/12/24 Fall risk assessment: No Falls in past year Last assessed Fall Risk: 09/12/24 Dental Screening Dental Screen Date: 09/12/24 Did you have a dental visit in the last 12 months?: No Did you have a dental problem in the last 6 months where you did not have access to dental care?: No Was dental information given to patient?: No HPI 3 Months HPI Details Patient comes in today for her follow up visit for her HTN, hyperlipidemia, DM, hypothyroidism, GERD, asthma and memory impairment States that she feels okay Her daughter states that she has gained a lot of weight since her last visit as she has been eating better lately Patient denies any headaches or dizziness Denies any chest pains, no increased SOB No nausea/vomiting, no abdominal pain No change in bowel habits noted She was not able to get her follow up labs done prior to her appointment today [facility] Medical History Blurred vision, bilateral Vitamin D deficiency Overweight (BMI 25.0-29.9) Memory impairment Osteoarthritis Bilateral hearing loss Asthma GERD without esophagitis Acquired hypothyroidism Benign essential hypertension Mixed hyperlipidemia Type 2 diabetes mellitus without complication, without long-term current use of insulin Surgical History History of cataract surgery History of D&C History of tubal ligation Family History Father Lung cancer Mother Hypertension Daughter Mental health disorder Social History Housing: Apartment Alcohol intake: never Patient Tobacco Use Status: Never used Tobacco e-Cigarette/Vaping Use: Never Used Second Hand Smoke Exposure: No service: No Current occupational status: retired Cognitive needs: No Hearing needs: Yes (has upcoming appt for audiology) Vision needs: Yes (Glasses) Questionnaire PHQ-9 Over the last 2 weeks, how often have you been bothered by any of the following problems? 1. Little interest or pleasure in doing things: more than half the days 2. Feeling down, depressed, or hopeless: not at all 3. Trouble falling or staying asleep, or sleeping too much: not at all 4. Feeling tired or having little energy: several days 5. Poor appetite or overeating: several days 6. Feeling bad about yourself - or that you are a failure or have let yourself or your family down: not at all 7. Trouble concentrating on things, such as reading the newspaper or watching television: not at all 8. Moving or speaking so slowly that other people could have noticed. Or the opposite - being so fidgety or restless that you have been moving around a lot more than usual: not at all 9. Thoughts that you would be better off or of hurting yourself in some way: not at all Total score: 4 Depression Screening Interpretation: Negative Depression Screening Done: Yes 48228 - PHQ-9 Billing: Yes Source: Developed by Drs. Joni James, Kristine Campa, Alex Okeefe and colleagues, with an educational suresh from [employer]. Thrive Questionnaire Date Thrive assessed: 09/12/24 I am a: Patient What is your living situation today?: I have a steady place to live Within the past 12 months, did the food you bought not last and you didn't have the money to get more?: Never true Within the past 12 months, did you worry whether your food would run out before you got money to buy more?: Never true Do you have trouble paying for medicines?: No Do you have trouble getting transportation to medical appointments?: No Do you have trouble paying your heating and electricity bill?: No Do you have trouble taking care of your child, family member or friend?: No Do you have trouble with day-to-day activities such as bathing, preparing meals, shopping, managing finances, etc.?: No Are you currently unemployed and looking for a job?: No Are you interested in more education?: No Please select the resources that you would like help with: None Currently or been in a relationship where the following occur: No concerns reported THRIVE Score: 0 AUDIT C Alcohol Use Questionnaire (AUDIT-C) 1. How often do you have a drink containing alcohol?: Never 3. How often do you have six or more drinks on one occasion?: Never Total Score: 0 Score Reviewed/Action Taken: Yes OMNICA-7 AMB Questionnaire MONICA-7 Date MONICA - 7 assessed: 09/12/24 Feeling nervous, anxious, or on edge: 0 = Not at all Not being able to stop or control worryin = Not at all Worrying too much about different things: 0 = Not at all Trouble relaxin = Not at all Being so restless that it is hard to sit still: 0 = Not at all Becoming easily annoyed or irritable: 0 = Not at all Feeling afraid as if something awful might happen: 0 = Not at all Total MONICA-7 score (0-4 normal; 5-9 mild; 10-14 moderate; 15-21 severe): 0 Source: Developed by Drs. Joni James, Kristine Campa, Alex Okeefe and colleagues, with an educational suresh from [employer]. Review of Systems Const Denies difficulty sleeping (sleeps on her own schedule), Reports fatigue, Denies fever(s) and Denies headache(s) ENT Denies dysphagia, Denies dizziness, Denies otalgia, Denies headache(s), Reports hearing loss (bilaterally; worse in the left ear - now has hearing aid in right ear), Denies neck pain, Denies odynophagia and Denies sore throat Card Denies chest pain, Denies palpitations and Denies dyspnea Resp Denies chest congestion, Denies cough and Denies dyspnea GI Denies abdominal pain, Denies constipation, Denies dysphagia, Denies heartburn, Denies diarrhea, Denies nausea, Denies odynophagia and Denies vomiting Denies difficulty voiding, Denies nocturia, Denies dysuria and Denies urinary urgency Musc Denies back pain, Reports arthralgias (both hips; left knee), Denies muscle weakness and Denies neck pain Skin/Breast Denies rash Neuro Denies dizziness, Denies headache(s) and Reports memory loss (per daughter) Psych Reports memory loss (per daughter) Endo Reports fatigue and Denies palpitations Physical exam (Primary Care) Vital Signs: Last Vital Signs Pulse 79 09/12/24 13:00 BP 122/84 09/12/24 13:00 Pulse Ox 98 09/12/24 13:00 Oxygen Delivery Method Room Air 09/12/24 13:00 BMI result Body Mass Index 21.6 Tobacco/Smoking Status: Tobacco use Status Tobacco use date assessed 09/12/24 09/12/24 13:07 Patient Tobacco Use Status Never used Tobacco 09/12/24 13:07 e-Cigarette/Vaping Use Never Used 09/12/24 13:07 PHQ-9: PHQ-9 Score PHQ-9: Total score 4 09/12/24 13:25 Depression Screening Interpretation: Negative Thrive Assessment: Date of Thrive Assessment Date Thrive assessed 09/12/24 09/12/24 13:07 Currently or been in a relationship where the following occur: No concerns reported Const General: no acute distress and alert HENMT Ears: TM's normal bilaterally and EAC's normal Throat: Yes posterior oropharynx normal and Yes tonsils normal (no TP congestion) Neck Neck: Yes no lymphadenopathy and Yes supple Thyroid: Thyroid normal Resp Auscultation: clear to auscultation bilaterally, no rales and no wheezes Cardio Rate: regular rate Rhythm: regular rhythm Heart sounds: no murmurs GI Palpation (GI): Soft to palpation and nontender Auscultation: normal bowel sounds General: Yes no CVA tenderness Back/Spine/Pelvis Back: no CVA tenderness Skin Rashes: no rashes Extrem General: Yes no clubbing, cyanosis or edema Right lower extremity: hip/thigh Details: tenderness Location: of the hip Left lower extremity: hip/thigh Details: tenderness Location: of the hip and knee Details: tenderness; no swelling Results AMB Hemoglobin A1c AMB Hemoglobin A1c 5.8 % Last Edit by SANFORD Terry on 09/12/24 13:24 Results Reviewed Results Reviewed: Laboratory Last Values Hgb A1c (Clinic) 5.8 % (4.0-6.0) 09/12/24 13:15 Coding Level of Care Code Est Pt Level 4 (78879) Diagnoses Type 2 diabetes mellitus without complication, without long-term current use of insulin E11.9 Mixed hyperlipidemia E78.2 Benign essential hypertension I10 Mild intermittent asthma without complication J45.20 Asthma complication type: uncomplicated Asthma persistence: intermittent Asthma severity: mild Acquired hypothyroidism E03.9 GERD without esophagitis K21.9 Primary osteoarthritis, unspecified site M19.91 Osteoarthritis location: unspecified site Osteoarthritis type: primary Vitamin D deficiency E55.9 Memory impairment R41.3 Hypokalemia E87.6 Bilateral hearing loss, unspecified hearing loss type H91.93 Hearing loss type: unspecified Additional Codes PHQ-9 - 70253 - PHQ-9 Billing: Yes ([id number]) Assessment & Plan Assessment & Plan (1) Type 2 diabetes mellitus without complication, without long-term current use of insulin: Code(s): E11.9 - Type 2 diabetes mellitus without complications Category: Medical Plan: Her in-office HgbA1c done today is at 5.8% (HgbA1c was also at 5.8% a few months ago in May 2024) - goal is at least <7.0% Reinforced diabetic diet Patient's Metformin ER 500 mg QD was HELD a few months ago due to her blood sugar getting too low and will continue to hold her medication for now Will have patient recheck her FBS and HgbA1c in 3 months for follow u (2) Mixed hyperlipidemia: Code(s): E78.2 - Mixed hyperlipidemia Category: Medical Plan: Patient was not able to get her follow up labs done prior to her appointment today - states that she forgot Her serum triglyceride level was still elevated but all of her other numbers are at goal on her labs done back in May 2024 Reinforced low cholesterol diet Continue Atorvastatin 20 mg QD and Fenofibrate 54 mg QD Will recheck her labs and fasting lipids in 3 months for follow-up - will just have patient use her current orders (updated) for her next lab draw (3) Benign essential hypertension: Code(s): I10 - Essential (primary) hypertension Category: Medical Plan: Reinforced low sodium diet - goal is systolic BP of at least 130 to 140 mm or less Continue Amlodipine 5 mg QD (4) Asthma: Code(s): J45.909 - Unspecified asthma, uncomplicated Category: Medical Qualifiers: Asthma complication type: uncomplicated Asthma persistence: intermittent Asthma severity: mild Qualified Code(s): J45.20 - Mild intermittent asthma, uncomplicated Plan: Controlled Continue Spiriva Respimat 2.5 mg 2 inhalations QD and Albuterol HFA 2 inhalations Q 6 hours PRN (5) Acquired hypothyroidism: Code(s): E03.9 - Hypothyroidism, unspecified Category: Medical Plan: Continue Levothyroxine 50 mcg QD Will recheck her TFTs in 3 months for follow up (6) GERD without esophagitis: Code(s): K21.9 - Gastro-esophageal reflux disease without esophagitis Category: Medical Plan: Dietary restrictions reinforced Continue Omeprazole 20 mg QD (7) Osteoarthritis: Code(s): M19.90 - Unspecified osteoarthritis, unspecified site Category: Medical Qualifiers: Osteoarthritis location: unspecified site Osteoarthritis type: primary Qualified Code(s): M19.91 - Primary osteoarthritis, unspecified site Plan: Left knee x-rays done in September 2023 revealed (+) mild to moderate osteoarthritis of the left knee Continue Tramadol 50 mg Q 6 hours PRN for increased pain Continue Ibuprofen 600 mg TID PRN with food (Rx refilled) OR start Acetaminophen 500 mg TID PRN (8) Vitamin D deficiency: Code(s): E55.9 - Vitamin D deficiency, unspecified Category: Medical Plan: Continue Vitamin D3 2000 units QD (9) Memory impairment: Code(s): R41.3 - Other amnesia Category: Medical Plan: This is most likely due to cognitive impairment Follow up with neurology as scheduled (10) Hypokalemia: Code(s): E87.6 - Hypokalemia Category: Medical Plan: She was given Klor Con ER 10 meq QD x 7 days at her last visit Will recheck her serum potassium level in a few months (11) Bilateral hearing loss: Code(s): H91.93 - Unspecified hearing loss, bilateral Category: Medical Qualifiers: Hearing loss type: unspecified Qualified Code(s): H91.93 - Unspecified hearing loss, bilateral Plan: Hearing evaluation done a few months ago revealed bilateral hearing loss, worse in the left ear She currently has hearing aid only in the right ear; was advised that a hearing aid for the left ear would not be recommended, since there is no measurable word discrimination in the ear and also since they are interested in keeping costs down Follow up with ENT as scheduled for continuing management (sees Dr. Encarnacion) Plan Follow up in 3 months Orders: Orders AMB Hemoglobin A1c Today Z13.9 - Encounter for screening, unspecified
[2024-09-12 13:00] VITALS: BP 122/84; PULSE 79; O2SAT 98; BMI 21.6
--- OUTSIDE RECORDS SUMMARY | 2024-09-12 14:36 | XMS_ITS ---
Author Organization [facility] Address [address] [place] [address] Care Team Providers Care Securities Compliance Examiner Name Role Phone Tee Yuan MDneth Primary Care Provider Venice Martines Unavailable [phone] REASON FOR VISIT CLINICAL DATA ABSTRACTOR no show 08/25 Encounters Encounter Location Date Provider Diagnosis [facility] [address] [place] [address] 08/26/2023 Venice Martinez Plan Of Treatment No Information Progress Notes * Altagracia JACKSON HDOB:1945 (78 yo F)Acc No.[id number]:08/26/2023 Patient:?Altagracia Jackson :1945???Age:78 Y???Sex:Female Address:[address] [place] [address] [address], [place], [address] * true * Date:? Generated for Judsoni xochitl/Lety/eTransmitting on:?09/12/2024 02:36 PM EDT
--- OUTSIDE RECORDS SUMMARY | 2024-09-12 14:36 | XMS_ITS ---
Author Organization [facility] Address [address] [place] [address] Care Team Providers Care Revising Clerk Name Role Phone Damián Yuan MD Primary Care Provider Ashley horton Venice Martinez Unavailable [phone] Rubin Hayes [phone] Encounters Encounter Location Date Provider Diagnosis [address] [address] 06/08/2023 Rubin Hayes Plan Of Treatment No Information Progress Notes * Altagracia JACKSON HDOB:1945 (79 yo F)Acc No.[id number]:06/08/2023 Progress Notes Patient:?Altagracia JACKSON Provider:?Rubin Hayes DPM :1945???Age:78 Y???Sex:Female D ate:06/08/2023 Phone: Address:[address] [place] [address] [address], [id number] Pcp:Damián Yuan MD Subjective: * Chief Complaints: [...] Hayes DPM Date:?2023 Generated for Ivonne leung/Lety/eTransmitting on:?09/12/2024 02:36 PM EDT
--- OUTSIDE RECORDS SUMMARY | 2024-09-12 14:37 | XMS_ITS ---
Author Organization [facility] Address [address] [facility] [place] [address] Care Team Providers Care Fraud Investigator Name Role Phone Damián Yuan MD Primary Care Provider Venice Martines Unavailable [phone] Allergies Allergen (clinical drug ingredient) Drug/Non Drug Allergy documented on EMR Reaction Allergy Type Onset Date Status Lisinopril cough Drug Allergy Active tramadol traMADol HCl hives Drug Allergy Acti [...] 08/26/2023 Encounters Encounter Location Date Provider Diagnosis [facility] [address] [place] [address] 08/26/2023 Venice Martinez Plan Of Treatment No Information Progress Notes * Altagracia JACKSON HDOB:1945 (79 yo F)Acc No.[id number]:08/26/2023 Progress Notes Patient:?Altagracia JACKSON Provider:?Venice Martinez DPM :1945???Age:78 Y???Sex:Female D ate:08/26/2023 Phone: Address:[address] [place] [address] [address], [place], [place] Pcp:Damián Yuan MD Subjective: * Chief Complaints: [...] Martinez DPM Date:?2023 Generated for Ivonne leung/Lety/Sarthak on:?09/12/2024 02:36 PM EDT
--- OUTSIDE RECORDS SUMMARY | 2024-09-12 14:37 | XMS_ITS | Patient Health Record ---
Author Organization [facility] [place] Address [address] [facility] [place] [address] Care Team Providers Care Inspector Of Dredging Name Role Phone Damián Yuan MD Primary Care Provider Venice Martines Unavailable [phone] Allergies Allergen (clinical drug ingredient) Drug/Non Drug Allergy documented on EMR Reaction Allergy Type Onset Date Status Lisinopril cough Drug Allergy Active tramadol traMADol HCl hives Drug Allergy Acti ve Reason For Referral No Information Medications Medication SIG (Take, Route, Frequency, Duration) Notes Start Date End Date Status Vitamin D3 50 MCG (1999 UT) 1 capsule Or ally Once a [...] ast year? No Points 0 Interpretation Negative Plan Of Treatment No Information Insurance Providers Payer Name Payer Address Payer Phone Subscriber Number Group Number Insured Name Patient Relationship to Insured Coverage Start Date Coverage End Date Medicare [employer] [address] [place] [address] [id number] Altagracia Rivera Self - patient is the insured Medical (General) History Medical History History ICD Code Vitamin D deficiency Memory impairment osteoarthritis Hearing loss asthma Reflux ( GERD) Hypothyroidism Hypertension Hyperlipidemia type II diabetes Blurred vision, bilateral Surgical History Surgery Date(Month/Year) cataract surgery D&C tubal ligation
== END 2024-09-12 13:39 | disposition home or self-care (01) ==
LOC: HO.HMCH 12:46
PROVIDERS: PCP Internal Medicine; Visit Provider Internal Medicine
DX: E11.9 Type 2 diabetes mellitus without complications (principal); E78.2 Mixed hyperlipidemia; I10 Essential (primary) hypertension; J45.20 Mild intermittent asthma, uncomplicated; E03.9 Hypothyroidism, unspecified; K21.9 Gastro-esophageal reflux disease without esophagitis; M19.91 Primary osteoarthritis, unspecified site; E55.9 Vitamin D deficiency, unspecified; R41.3 Other amnesia; E87.6 Hypokalemia; H91.93 Unspecified hearing loss, bilateral; Z13.9 Encounter for screening, unspecified

== ENCOUNTER → 2024-09-12 12:45 | Outpatient (BNVA) | payer MEDICARE, SELFPAY | PROVIDERS: PCP Internal Medicine; Visit Provider Internal Medicine | DX: E11.9 Type 2 diabetes mellitus without complications (principal); E78.2 Mixed hyperlipidemia; I10 Essential (primary) hypertension; J45.20 Mild intermittent asthma, uncomplicated; E03.9 Hypothyroidism, unspecified; K21.9 Gastro-esophageal reflux disease without esophagitis; M19.91 Primary osteoarthritis, unspecified site; E55.9 Vitamin D deficiency, unspecified; R41.3 Other amnesia; E87.6 Hypokalemia; H91.93 Unspecified hearing loss, bilateral | CPT/HCPCS: 83036; 96127; 99212 ==

== ENCOUNTER 2024-09-12 13:50 | Outpatient (REF) | payer MEDICARE, SELFPAY | END 2024-09-12 13:51 | disposition home or self-care (01) | LOC: HO.HAP 13:50 | PROVIDERS: Visit Provider Internal Medicine | DX: Z13.89 Encounter for screening for other disorder (principal) ==

== ENCOUNTER 2024-09-26 10:55 | Outpatient (REF) | payer SELFPAY ==
--- OUTSIDE RECORDS SUMMARY | 2024-09-26 12:22 | XMS_ITS ---
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 Generated for Judsoni xochitl/Lety/eTransmitting on:?09/26/2024 12:22 PM EDT
--- OUTSIDE RECORDS SUMMARY | 2024-09-26 12:22 | XMS_ITS ---
Author Organization [facility] Address [address] [place] [address] Care Team Providers Care Phosphoric Acid Operator Name Role Phone Damián Yuan MD Primary Care Provider Ashley horton Venice Martinez Unavailable [phone] Rubin Hayes [phone] Encounters Encounter Location Date Provider Diagnosis [address] [address] 06/08/2023 Rubin Hayes Plan Of Treatment No Information Progress Notes * Altagracia JACKSON HDOB:1945 (79 yo F)Acc No.[id number]:06/08/2023 Progress Notes Patient:?Altagracia JACKSON Provider:?Rubin Hayes DPM :1945???Age:78 Y???Sex:Female D ate:06/08/2023 Phone: Address:[address] [place] [address] [address] [id number] Pcp:Damián Yuan MD Subjective: * Chief Complaints: [...] Hayes DPM Date:?2023 Generated for Ivonne leung/Lety/eTransmitting on:?09/26/2024 12:21 PM EDT
--- OUTSIDE RECORDS SUMMARY | 2024-09-26 12:22 | XMS_ITS | Patient Health Record ---
Author Organization [facility] [place] Address [address] [facility] [place] [address] Care Team Providers Care Ship Surveyor Name Role Phone Damián Yuan MD Primary Care Provider Venice Martines Unavailable [phone] Allergies Allergen (clinical drug ingredient) Drug/Non Drug [...] Inc [address] [place] [address] [id number] Altagracia Rivera Self - patient is the insured Medical (General) History Medical History History ICD Code Vitamin D deficiency Memory impairment osteoarthritis Hearing loss asthma Reflux ( GERD) Hypothyroidism Hypertension Hyperlipidemia type II diabetes Blurred vision, bilateral Surgical History Surgery Date(Month/Year) cataract surgery D&C tubal ligation
--- OUTSIDE RECORDS SUMMARY | 2024-09-26 12:23 | XMS_ITS ---
[facility] Organization [facility] Address [address] [facility] [place] [address] Care Team Providers Care Powder Operator Name Role Phone Damián Yuan MD Primary Care Provider Vneice Martines Unavailable [phone] Allergies Allergen (clinical drug ingredient) Drug/Non Drug [...] 08/26/2023 Encounters Encounter Location Date Provider Diagnosis [facility] [place] [address] [place] [address] 08/26/2023 Venice Martinez Plan Of Treatment No Information Progress Notes * Altagracia JACKSON HDOB:1945 (79 yo F)Acc No.[id number]:08/26/2023 Progress Notes Patient:?Altagracia JACKSON Provider:?Venice Martinez DPM :1945???Age:78 Y???Sex:Female D ate:08/26/2023 Phone: Address:[address] [place] [address] [address], [place], [place] Pcp:Damián Yuan MD Subjective: * Chief Complaints: [...] Martinez DPM Date:?2023 Generated for Ivonne leung/Lety/Sarthak on:?09/26/2024 12:22 PM EDT
== END 2024-09-26 10:56 | disposition home or self-care (01) ==
LOC: HO.HAP 10:55
PROVIDERS: Visit Provider Internal Medicine
DX: Z46.1 Encounter for fitting and adjustment of hearing aid (principal)
CPT/HCPCS: 92593